=== PATIENT | female | born 1985 | race Caucasian/White ===

== ENCOUNTER 2022-02-09 18:41 | Emergency (ER) | payer OTHER ==
[2022-02-09] MEDS ORDERED: solu-MEDROL ONE (19:15)
[2022-02-09] MEDS ORDERED: Pepcid 20 MG VIAL IV ONE (19:20)
[2022-02-09] MEDS ORDERED: Sterile H2O 10 ml IJ ONE (19:20)
[2022-02-09] MEDS: Pepcid 20 MG VIAL IV ONE (19:25)
[2022-02-09] MEDS: solu-MEDROL 125 MG, Sterile H2O 10 ml 2 ML IV ONE ×2 (19:25)
--- NOTE | 2022-02-09 19:50 | ERPHSYRPT ---
- History of Present Illness Source: patient, EMS Exam Limitations: no limitations Patient Subjective Stated Complaint: swollen throat due to coconut allergy Triage Nursing Assessment: Pt brought to the ER by EMS, vitals wnl, denies pain, pulses normal, skin n/w/d, no hives or redness noted, pt sleeping at this time, doesn't appear to be in any distress at this time Physician History: 36 yo wf w h/o of coconut allergy became dyspneic/trouble swallowing after possibly ingesting coconut at [employer]. Pt took 50mg po Benadryl and was given IM Epi per EMs w improvement. She was alert and oriented x3 w good BP/Sats/airway upon arrival. Pt somewhat sleepy upon arrival but much improved. Timing/Duration: today Severity: moderate Modifying Factors: Improves With: other (Benadryl/Epi) Associated Symptoms: shortness of breath, No nausea, No vomiting, No abdominal pain, No heartburn, No diaphoresis, No cough, No chills, No chest pain, No fever, No headaches, No loss of appetite, No malaise, No rash, No syncope, No seizure, No weakness Allergies/Adverse Reactions: shrimp Allergy (Severe, Verified 02/09/22 18:59) Difficulty Breathing venom-honey bee Allergy (Severe, Verified 02/09/22 18:59) Difficulty Breathing venom-wasp Allergy (Severe, Verified 02/09/22 18:59) Difficulty Breathing menthol [From Icy Hot] Allergy (Intermediate, Verified 02/09/22 18:59) Hives methyl salicylate [From Icy Hot] Allergy (Intermediate, Verified 02/09/22 18:59) Hives nicotine [From Nicoderm CQ] Allergy (Intermediate, Verified 02/09/22 18:59) Rash latex Allergy (Mild, Verified 02/09/22 18:59) Rash coconut Allergy (Verified 02/09/22 18:59) Anaphylactic Reaction Home Medications: Fluoxetine HCl 20 mg [Prozac 20 MG] 60 mg PO DAILY 12/15/18 [History] Topiramate 25 mg PO DAILY 04/14/20 [History] Hx Tetanus, Diphtheria Vaccination/Date Given: Yes Hx Influenza Vaccination/Date Given: Yes Hx Pneumococcal Vaccination/Date Given: No Travel Risk - International Travel Have you traveled outside of the country in past 3 weeks: No - Coronavirus Screening Are you exhibiting any of the following symptoms?: No - Vaccine Status Have you recieved a Covid-19 vaccination: Yes [employer]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: [employer] - Vaccination Dates Date of 2cond Vaccination (if applicable): 9190817 - Review of Systems Constitutional: No Symptoms Eyes: No Symptoms Ears, Nose, & Throat: No Symptoms, Throat Swelling Respiratory: No Symptoms, Dyspnea Cardiac: No Symptoms Abdominal/Gastrointestinal: No Symptoms Genitourinary Symptoms: No Symptoms Musculoskeletal: No Symptoms Skin: No Symptoms Neurological: No Symptoms Psychological: No Symptoms Endocrine: No Symptoms Hematologic/Lymphatic: No Symptoms Immunological/Allergic: No Symptoms - Past Medical History Pertinent Past Medical History: Yes Neurological History: Migraines, Seizures ENT History: No Pertinent History Cardiac History: No Pertinent History Respiratory History: Asthma Endocrine Medical History: No Pertinent History Musculoskeletal History: No Pertinent History GI Medical History: GERD History: No Pertinent History Psycho-Social History: Depression, Anxiety Female Reproductive Disorders: No Pertinent History - Past Surgical History Past Surgical History: Yes Neuro Surgical History: No Pertinent History Cardiac: No Pertinent History Respiratory: No Pertinent History Gastrointestinal: No Pertinent History Genitourinary: No Pertinent History Musculoskeletal: No Pertinent History Female Surgical History: Section, Dilation & Curettage Other Surgical History: tubal ligation - Social History Smoking Status: Current every day smoker How long have you smoked: 16yrs Exposure to second hand smoke: Yes Drug Use: none Patient Lives Alone: No Significant Family History: no pertinent family hx - Female History Hx Now: No - Nursing Vital Signs Nursing Vital Signs: Initial Vital Signs Temperature 97.3 F 02/09/22 18:43 Pulse Rate 85 02/09/22 18:43 Respiratory Rate 16 02/09/22 18:43 Blood Pressure 120/73 02/09/22 18:43 O2 Sat by Pulse Oximetry 99 02/09/22 18:43 Pain Scale Pain Intensity 0 WNL - Physical Exam General Appearance: no apparent distress (Sleepy) Eye Exam: PERRL/EOMI, eyes nml inspection Ears, Nose, Throat Exam: normal ENT inspection, TMs normal, pharynx normal, moist mucous membranes Neck Exam: normal inspection, non-tender, supple, full range of motion, No meningismus, No mass, No Brudzinski, No Kernig's, No carotid bruit Respiratory Exam: crackles/rales (Faint at bases B) Cardiovascular Exam: regular rate/rhythm, normal heart sounds, normal peripheral pulses, capillary refill <2 sec, No murmur Gastrointestinal/Abdomen Exam: soft, normal bowel sounds, No tenderness Back Exam: normal inspection, normal range of motion, No CVA tenderness, No vertebral tenderness Extremity Exam: normal inspection, normal range of motion Neurologic Exam: alert, oriented x 3, 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, 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, normal mood/affect Skin Exam: normal color, warm, dry Lymphatic Exam: No adenopathy SpO2 Interpretation: normal SpO2: 100 O2 Delivery: Room Air - Course Nursing assessment & vital signs reviewed: Yes Ordered Tests: Medication Summary Discontinued Medications Generic Name Dose Route Start Last Admin Trade Name Daniel PRN Reason Stop Dose Admin Methylprednisolone Sodium 0 mg 02/09/22 19:02 02/09/22 19:25 Succinate 125 mg/ Sterile IV 02/09/22 19:03 125 mg Water 2 ml STAT ONE Administration Famotidine 40 mg 02/10/22 19:02 02/09/22 19:25 Famotidine 20 Mg/1 Vial IV 02/10/22 19:03 40 mg STAT ONE Administration Famotidine Confirm 02/09/22 19:20 Famotidine 20 Mg/1 Vial Administered 02/09/22 19:21 Dose 40 mg IV .STK-MED ONE Methylprednisolone Sodium Succinate Confirm 02/09/22 19:15 Methylprednis Sod Succ 125 Mg/2 Ml Vial Administered 02/09/22 19:16 Dose 125 mg .ROUTE .STK-MED ONE Sterile Water Confirm 02/09/22 19:20 Water For Injection,Sterile 10 Ml Vial Administered 02/09/22 19:21 Dose 10 ml IJ .STK-MED ONE - Progress Progress: improved Progress Note: 02/09/22 22:00 40mg IV Pepcid/125mg IV Solumedrol Pt observed in ER/Good sats on room air/Respirations nonlabored/States back to baseline and wants to go home 02/09/22 22:43 Counseled pt/family regarding: diagnosis, need for follow-up - Departure Departure Disposition: Home Clinical Impression: Allergic reaction Condition: Stable Critical Care Time: No Referrals: JAMES FRANCE MD [Primary Care Provider] - Follow up/PCP as directed Instructions: Food Allergy, Anaphylaxis (DC) Additional Instructions: Benadryl 25mg every 6 hours as needed Use EpiPen as needed for anaphylaxis, May repeat x1 Return to ER for severe allergic reaction
[2022-02-09 22:23] VITALS: BP 96/61; PULSE 76
[2022-02-09 22:43] VITALS: O2SAT 100
== END 2022-02-09 22:23 | disposition home or self-care (01) ==
LOC: ED 18:41
DX: T78.1XXA Other adverse food reactions, not elsewhere classified, initial encounter (principal); R06.00 Dyspnea, unspecified; R13.10 Dysphagia, unspecified; Z72.0 Tobacco use; Z79.899 Other long term (current) drug therapy
CPT/HCPCS: 96374; 96375; 99283; J2930

== ENCOUNTER 2022-06-11 16:52 | Emergency (ER) | payer OTHER ==
[2022-06-11 17:19] VITALS: BP 141/84; PULSE 88; O2SAT 99
[2022-06-11 18:15] LABS: INFLUENZA B NEGATIVE (NEGATIVE); RESPIRATORY SYNCTIAL VIRUS NEGATIVE (Negative); SARS-CoV-2 Xpert Express NEGATIVE (NEGATIVE)
[2022-06-11 18:39] LABS: INFLUENZA A POSITIVE (NEGATIVE)
[2022-06-11] MEDS ORDERED: Tamiflu 75MG Capsule PO ONE ×2 (18:39→18:53)
[2022-06-11] MEDS ORDERED: HYDROCODONE-ACETAMIN 2.5-108/5 ML SOLUTION ONE (18:40)
[2022-06-11] MEDS ORDERED: HYDROCODONE-ACETAMIN 2.5-108/5 ML SOLUTION PO STA (18:52)
--- NOTE | 2022-06-11 18:52 | ERPHSYRPT ---
- History of Present Illness Time Seen by Provider: 06/11/22 16:56 Source: patient Exam Limitations: no limitations Patient Subjective Stated Complaint: Pt c/o of a cough for approx 3 days and she coughs so much it makes her vomit, c/o of all over body aches and neck pain Triage Nursing Assessment: Pt brought to the ER by her father, hypertensive, rates generalized pain as 9/10, dry cough, shivering, feels warm to the touch but oral temp is 98.5, runny nose, headache, states that she had a fever at home of 100.6 and took some tylenol Physician History: 36-year-old female presented in the ER with chief complaint of flulike symptoms for last 3 days. Patient reports wet to dry cough, having bouts of coughing followed by gagging and sometimes vomits. Having low-grade fever with a T-max of 100.6 earlier today. Patient feels weak fatigued tired and dehydrated. Having generalized body aches. Denies any abdominal pain. Timing/Duration: day(s) (3), gradual onset, worse Cough Quality/Degree: moderate, dry cough Possible Cause: unknown cause Modifying Factors: Worsens With: activity Associated Symptoms: fever, chills, chest pain/soreness, cough, muscle aches, nasal congestion, nasal drainage, shortness of breath, sinus infection, sore throat Allergies/Adverse Reactions: shrimp Allergy (Severe, Verified 06/11/22 17:19) Difficulty Breathing venom-honey bee Allergy (Severe, Verified 06/11/22 17:19) Difficulty Breathing venom-wasp Allergy (Severe, Verified 06/11/22 17:19) Difficulty Breathing menthol [From Icy Hot] Allergy (Intermediate, Verified 06/11/22 17:19) Hives methyl salicylate [From Icy Hot] Allergy (Intermediate, Verified 06/11/22 17:19) Hives nicotine [From Nicoderm CQ] Allergy (Intermediate, Verified 06/11/22 17:19) Rash latex Allergy (Mild, Verified 06/11/22 17:19) Rash coconut Allergy (Verified 06/11/22 17:19) Anaphylactic Reaction Home Medications: Escitalopram Oxalate [Lexapro] 10 mg PO DAILY 06/11/22 [History] Hx Tetanus, Diphtheria Vaccination/Date Given: Yes Hx Influenza Vaccination/Date Given: Yes Hx Pneumococcal Vaccination/Date Given: No Travel Risk - International Travel Have you traveled outside of the country in past 3 weeks: No - Coronavirus Screening Symptoms: Fever, Cough: New Onset, Vomiting/Diarrhea, Headaches/Body Aches/Fatigue - Vaccine Status Have you recieved a Covid-19 vaccination: Yes 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[employer] - Vaccination Dates Date of 2cond Vaccination (if applicable): 9190817 - Review of Systems Constitutional: Fever, Chills, Fatigue, Weakness Eyes: No Symptoms Ears, Nose, & Throat: Nose Congestion, Sinus Drainage, Throat Pain Respiratory: Cough Cardiac: Chest Pain Abdominal/Gastrointestinal: Vomiting Genitourinary Symptoms: No Symptoms Musculoskeletal: Myalgias Skin: No Symptoms Neurological: No Symptoms Endocrine: No Symptoms Hematologic/Lymphatic: No Symptoms Immunological/Allergic: No Symptoms - Past Medical History Pertinent Past Medical History: Yes Neurological History: Migraines, Seizures ENT History: No Pertinent History Cardiac History: No Pertinent History Respiratory History: Asthma Endocrine Medical History: No Pertinent History Musculoskeletal History: No Pertinent History GI Medical History: GERD History: No Pertinent History Psycho-Social History: Depression, Anxiety Female Reproductive Disorders: No Pertinent History - Past Surgical History Past Surgical History: Yes Neuro Surgical History: No Pertinent History Cardiac: No Pertinent History Respiratory: No Pertinent History Gastrointestinal: No Pertinent History Genitourinary: No Pertinent History Musculoskeletal: No Pertinent History Female Surgical History: Section, Dilation & Curettage Other Surgical History: tubal ligation - Social History Smoking Status: Current every day smoker How long have you smoked: 16yrs Exposure to second hand smoke: Yes Drug Use: none Patient Lives Alone: No Significant Family History: no pertinent family hx - Female History Hx Now: No (tubal) - Nursing Vital Signs Nursing Vital Signs: Initial Vital Signs Temperature 98.5 F 06/11/22 17:03 Pulse Rate 88 06/11/22 17:03 Blood Pressure 141/84 06/11/22 17:03 O2 Sat by Pulse Oximetry 99 06/11/22 17:03 Pain Scale Pain Intensity 9 - Physical Exam General Appearance: no apparent distress, alert Eye Exam: PERRL/EOMI Ears, Nose, Throat Exam: TMs normal, moist mucous membranes, pharyngeal erythema Neck Exam: normal inspection, non-tender, supple, full range of motion Respiratory Exam: normal breath sounds, lungs clear Cardiovascular Exam: regular rate/rhythm, normal heart sounds Gastrointestinal/Abdomen Exam: soft, normal bowel sounds, No tenderness Back Exam: normal inspection, normal range of motion Extremity Exam: normal inspection, normal range of motion Neurologic Exam: alert, oriented x 3, 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, 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 Skin Exam: normal color SpO2 Interpretation: normal SpO2: 99 O2 Delivery: Room Air Ordered Tests: Active Orders 24 hr Category Date Time Status CHEST 1 VIEW (PORTABLE) Stat Exams 06/11/22 17:28 Ordered Medication Summary Discontinued Medications Generic Name Dose Route Start Last Admin Trade Name Daniel PRN Reason Stop Dose Admin Hydrocodone Bitart/Acetaminophen Confirm 06/11/22 18:40 Hydrocodone/Acetaminophen 5 Ml Udcup Administered 06/11/22 18:41 Dose 10 ml .ROUTE .STK-MED ONE Oseltamivir Phosphate Confirm 06/11/22 18:39 Oseltamivir 75 Mg Cap Administered 06/11/22 18:40 Dose 75 mg PO .STK-MED ONE Lab/Rad Data: Laboratory Results 06/11/22 Range/Units 17:37 Influenza Type A Ag POSITIVE (NEGATIVE) Influenza Type B Ag NEGATIVE (NEGATIVE) RSV (PCR) NEGATIVE (Negative) SARS-CoV-2 (PCR) NEGATIVE (NEGATIVE) - Progress Progress: re-examined Air Movement: good Progress Note: 06/11/22 18:50 36-year-old is evaluated for flulike symptoms. She is given Zofran for symptomatic relief. Chest x-ray negative for any acute cardiopulmonary findings reviewed by me, official report is pending. She has positive influenza A, started on Tamiflu. Recommended supportive care and outpatient follow-up. Discussed signs symptoms of worsening needing return to ER which she seems understanding. Blood Culture(s) Obtained: No Antibiotics given: No Counseled pt/family regarding: lab results, diagnosis, need for follow-up, rad results - Departure Departure Disposition: Home Clinical Impression: Influenza A Condition: Stable Critical Care Time: No Referrals: GORDO GOMEZ PA [Primary Care Provider] - Follow Up with PCP/3 days Instructions: Flu, Adult (DC) Additional Instructions: Take Tylenol/ibuprofen as needed for aches and pains/fever chills. Follow-up with primary care for reevaluation. Return to ER for worsening cough or if having difficulty breathing etc. Prescriptions: Oseltamivir 75 mg [Tamiflu 75MG Capsule] 75 mg PO BID #10 cap
--- NOTE | 2022-06-11 21:10 | XRAY ---
Indication: Cough, short of breath, and vomiting. Comparison: None Portable chest demonstrates normal heart, lungs, and bony thorax.
== END 2022-06-11 18:59 | disposition home or self-care (01) ==
LOC: ED 16:52
DX: J10.1 Influenza due to other identified influenza virus with other respiratory manifestations (principal); R05.1 Acute cough; R50.9 Fever, unspecified; R53.1 Weakness; M79.10 Myalgia, unspecified site; Z72.0 Tobacco use; Z79.899 Other long term (current) drug therapy
CPT/HCPCS: 0241U; 71045; 99283; A9270-GY

== ENCOUNTER 2022-08-16 21:09 | Emergency (ER) | payer OTHER ==
--- NOTE | 2022-08-16 21:14 | ERPHSYRPT ---
- History of Present Illness Time Seen by Provider: 08/16/22 21:14 Source: patient Exam Limitations: no limitations Physician History: This is a 36-year-old obese female who presents with 2-day history of ankle swelling. Is localized to the right ankle. Patient denies calf pain. She denies cough. She denies shortness of breath. She has no history of clotting or bleeding disorders. Patient has no idea why she has the swelling. She did not fall and she has not suffered any traumatic injury. Patient states she has never had anything like this before. Method of Injury: other (No injury no fall) Occurred: days ago (2) Severity of Pain-Max: mild Severity of Pain-Current: mild Lower Extremities Pain: ankle: right Modifying Factors: Improves With: movement Associated Symptoms: other (Patient can bear weight without any difficulty. She does feel a tightness around the ankle but it is mild) Allergies/Adverse Reactions: shrimp Allergy (Severe, Verified 08/16/22 21:20) Difficulty Breathing venom-honey bee Allergy (Severe, Verified 08/16/22 21:20) Difficulty Breathing venom-wasp Allergy (Severe, Verified 08/16/22 21:20) Difficulty Breathing menthol [From Icy Hot] Allergy (Intermediate, Verified 08/16/22 21:20) Hives methyl salicylate [From Icy Hot] Allergy (Intermediate, Verified 08/16/22 21:20) Hives nicotine [From Nicoderm CQ] Allergy (Intermediate, Verified 08/16/22 21:20) Rash latex Allergy (Mild, Verified 08/16/22 21:20) Rash coconut Allergy (Verified 08/16/22 21:20) Anaphylactic Reaction Home Medications: Escitalopram Oxalate [Lexapro] 10 mg PO DAILY 06/11/22 [History] Hx Tetanus, Diphtheria Vaccination/Date Given: Yes Hx Influenza Vaccination/Date Given: Yes Hx Pneumococcal Vaccination/Date Given: No Travel Risk - International Travel Have you traveled outside of the country in past 3 weeks: No - Coronavirus Screening Are you exhibiting any of the following symptoms?: No Close contact with a COVID-19 positive Pt in past 14-21 Days: No - Vaccine Status Have you recieved a Covid-19 vaccination: Yes 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[employer] - Vaccination Dates Date of 2cond Vaccination (if applicable): 9190817 - Review of Systems Constitutional: No Symptoms Eyes: No Symptoms Ears, Nose, & Throat: No Symptoms Respiratory: No Symptoms Cardiac: No Symptoms Abdominal/Gastrointestinal: No Symptoms Genitourinary Symptoms: No Symptoms Musculoskeletal: Joint Swelling (Mild right ankle) Skin: No Symptoms Neurological: No Symptoms Psychological: No Symptoms Endocrine: No Symptoms Hematologic/Lymphatic: No Symptoms Immunological/Allergic: No Symptoms All Other Systems: Reviewed and Negative - Past Medical History Pertinent Past Medical History: Yes Neurological History: Migraines, Seizures ENT History: No Pertinent History Cardiac History: No Pertinent History Respiratory History: Asthma Endocrine Medical History: No Pertinent History Musculoskeletal History: No Pertinent History GI Medical History: GERD History: No Pertinent History Psycho-Social History: Depression, Anxiety Female Reproductive Disorders: No Pertinent History - Past Surgical History Past Surgical History: Yes Neuro Surgical History: No Pertinent History Cardiac: No Pertinent History Respiratory: No Pertinent History Gastrointestinal: No Pertinent History Genitourinary: No Pertinent History Musculoskeletal: No Pertinent History Female Surgical History: Section, Dilation & Curettage Other Surgical History: tubal ligation - Social History Smoking Status: Current every day smoker How long have you smoked: 16yrs Exposure to second hand smoke: Yes Drug Use: none Patient Lives Alone: No Significant Family History: no pertinent family hx - Nursing Vital Signs Nursing Vital Signs: Initial Vital Signs Temperature 97.4 F 08/16/22 21:21 Pulse Rate 63 08/16/22 21:21 Respiratory Rate 18 08/16/22 21:21 Blood Pressure 118/58 08/16/22 21:21 O2 Sat by Pulse Oximetry 100 08/16/22 21:21 Pain Scale Pain Intensity 2 - Physical Exam General Appearance: no apparent distress, alert, anxiety, obese Eyes, Ears, Nose, Throat Exam: normal ENT inspection, moist mucous membranes Neck Exam: normal inspection, non-tender, supple, full range of motion Cardiovascular/Respiratory Exam: chest non-tender, no respiratory distress Gastrointestinal/Abdominal Exam: non-tender Back Exam: normal inspection, normal range of motion, No CVA tenderness, No vertebral tenderness Hips Exam: bilateral: non-tender, normal inspection, normal range of motion, no evidence of injury Legs Exam: bilateral leg: non-tender, normal inspection, normal range of motion, no evidence of injury Knees Exam: bilateral knee: non-tender, normal inspection, normal range of motion, no evidence of injury Ankle Exam: right ankle: other (Patient, clinically does not appear to have significant swelling but she states there is mild tenderness around the ankle on the right side), left ankle: non-tender, bilateral ankle: normal inspection, normal range of motion, no evidence of injury Foot Exam: bilateral foot: non-tender, normal inspection, normal range of motion, no evidence of injury Neuro/Tendon Exam: normal sensation, normal motor functions, normal tendon functions Mental Status Exam: alert, oriented x 3, cooperative Skin Exam: normal color, warm, dry SpO2 Interpretation: normal - Course Nursing assessment & vital signs reviewed: Yes Ordered Tests: Active Orders 24 hr Category Date Time Status Yann Bandage Application -[facility] STAT Care 08/16/22 21:55 Ordered ANKLE (3 VIEWS) Stat Exams 08/16/22 21:29 Ordered - Progress Progress: unchanged Progress Note: 08/16/22 21:59 X-ray right ankle shows no acute fracture or dislocation. This x-ray was interpreted by me. Medical decision making: This patient has a low complexity medical issue. I obtained history from the patient. No other history was obtained from individuals or old records. Based on the patient's history and physical exam, I ordered an x-ray of the right ankle. No blood work was necessary. I reviewed the x-ray of the right ankle and are interpreted myself. There is no evidence of any acute fracture or dislocation. Based on the x-ray findings and physical exam findings, I formulated a discharge plan which included ice pack, Yann wrap, elevation of the right lower extremity above the level of the heart and the use of Tylenol and ibuprofen for pain control. Patient declined use of ibuprofen. Patient and family members have had issues with the use of ibuprofen. I also discussed with the patient that part of the discharge instructions would be to follow-up with her primary care physician or orthopedic clinic of choice if she has persistent or worsening symptoms. Counseled pt/family regarding: diagnosis, need for follow-up, rad results - Departure Departure Disposition: Home Clinical Impression: Right ankle pain Condition: Stable Critical Care Time: No Referrals: GORDO GOMEZ PA [Primary Care Provider] - Follow up/PCP as directed Additional Instructions: Ice pack to area 3 times a day for 48 hours. Use Tylenol every 4 hours while awake as discussed for pain control. Use the Yann wrap for pain control. Follow-up with your primary care provider or orthopedic clinic of choice for persistent symptoms.
[2022-08-16 22:09] VITALS: BP 109/75; PULSE 71; O2SAT 99
--- NOTE | 2022-08-17 08:56 | XRAY ---
Indication: Pain and swelling. No known injury. Comparison: None 3 view right ankle demonstrates small plantar heel spur and tiny distal tibial spur anteriorly. No other bony, articular, or soft tissue abnormalities.
== END 2022-08-16 22:17 | disposition home or self-care (01) ==
LOC: ED 21:09
DX: M25.571 Pain in right ankle and joints of right foot (principal); M25.471 Effusion, right ankle; Z79.899 Other long term (current) drug therapy; Z72.0 Tobacco use
CPT/HCPCS: 73610; 99283

== ENCOUNTER 2022-11-03 01:01 | Emergency (ER) | payer OTHER ==
[2022-11-03] MEDS ORDERED: Augmentin 875-125 Tablet PO ONE (02:07)
[2022-11-03 02:08] VITALS: BP 122/85; PULSE 73; O2SAT 100
[2022-11-03] MEDS ORDERED: TYLENOL 325 MG PO ONE (02:09)
--- NOTE | 2022-11-03 02:10 | ERPHSYRPT ---
- History of Present Illness Time Seen by Provider: 11/03/22 02:14 Source: patient Exam Limitations: no limitations Physician History: Patient is a 36-year-old female presents to our ED for evaluation of dental pain. Patient has been experiencing dental pain for the past 2 days. Patient states her right cheek is been progressively swelling worse today. No trauma. No fever. Pain worse with palpation to the teeth 11 and 12. Pain worse with mastication. Pain improved with rest. No trauma. Symptoms are moderate in intensity. No specific worsening improving factors. Patient took Tylenol for pain control yesterday however has not had any pain medication today. Patient voices no other complaints concerns at this time. Portions of this note were created with voice recognition technology. There may be grammatical, spelling, punctuation or sound alike errors Timing/Duration: today Severity: moderate Modifying Factors: Improves With: other (Mastication) Associated Symptoms: denies symptoms Allergies/Adverse Reactions: shrimp Allergy (Severe, Verified 11/03/22 02:05) Difficulty Breathing venom-honey bee Allergy (Severe, Verified 11/03/22 02:05) Difficulty Breathing venom-wasp Allergy (Severe, Verified 11/03/22 02:05) Difficulty Breathing menthol [From Icy Hot] Allergy (Intermediate, Verified 11/03/22 02:05) Hives methyl salicylate [From Icy Hot] Allergy (Intermediate, Verified 11/03/22 02:05) Hives nicotine [From Nicoderm CQ] Allergy (Intermediate, Verified 11/03/22 02:05) Rash latex Allergy (Mild, Verified 11/03/22 02:05) Rash coconut Allergy (Verified 11/03/22 02:05) Anaphylactic Reaction Home Medications: Escitalopram Oxalate [Lexapro] 10 mg PO DAILY 06/11/22 [History] Hx Tetanus, Diphtheria Vaccination/Date Given: Yes Hx Influenza Vaccination/Date Given: Yes Hx Pneumococcal Vaccination/Date Given: No Travel Risk - Vaccine Status Have you recieved a Covid-19 vaccination: Yes 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[employer] - Vaccination Dates Date of 2cond Vaccination (if applicable): 9190817 - Review of Systems Constitutional: No Symptoms, No Fever, No Chills Eyes: No Symptoms Ears, Nose, & Throat: No Symptoms Respiratory: No Symptoms, No Cough, No Dyspnea Cardiac: No Symptoms, No Chest Pain, No Edema, No Syncope Abdominal/Gastrointestinal: No Symptoms, No Abdominal Pain, No Nausea, No Vomiting, No Diarrhea Genitourinary Symptoms: No Symptoms, No Dysuria Musculoskeletal: No Symptoms, No Back Pain, No Neck Pain Skin: No Symptoms, No Rash Neurological: No Symptoms, No Dizziness, No Focal Weakness, No Sensory Changes Psychological: No Symptoms Endocrine: No Symptoms Hematologic/Lymphatic: No Symptoms Immunological/Allergic: No Symptoms All Other Systems: Reviewed and Negative - Past Medical History Pertinent Past Medical History: Yes Neurological History: Migraines, Seizures ENT History: No Pertinent History Cardiac History: No Pertinent History Respiratory History: Asthma Endocrine Medical History: No Pertinent History Musculoskeletal History: No Pertinent History GI Medical History: GERD History: No Pertinent History Psycho-Social History: Depression, Anxiety Female Reproductive Disorders: No Pertinent History - Past Surgical History Past Surgical History: Yes Neuro Surgical History: No Pertinent History Cardiac: No Pertinent History Respiratory: No Pertinent History Gastrointestinal: No Pertinent History Genitourinary: No Pertinent History Musculoskeletal: No Pertinent History Female Surgical History: Section, Dilation & Curettage Other Surgical History: tubal ligation - Social History Smoking Status: Current every day smoker How long have you smoked: 16yrs Exposure to second hand smoke: Yes Drug Use: none Patient Lives Alone: No Significant Family History: no pertinent family hx - Nursing Vital Signs Nursing Vital Signs: Initial Vital Signs Temperature 97.7 F 11/03/22 02:07 Pulse Rate 73 11/03/22 02:07 Respiratory Rate 18 11/03/22 02:07 Blood Pressure 122/85 11/03/22 02:07 O2 Sat by Pulse Oximetry 100 11/03/22 02:07 Pain Scale Pain Intensity 8 - Physical Exam General Appearance: no apparent distress, alert Eye Exam: PERRL/EOMI, eyes nml inspection Ears, Nose, Throat Exam: normal ENT inspection, TMs normal, pharynx normal, moist mucous membranes, other (Dental abscess tooth #12. There is some tenderness to palpation at tooth #11 as well. There is an obvious dental abscess. No other intraoral pathology. Uvula midline. No sublingual masses. No intraoral lesions. Airway patent) Neck Exam: normal inspection, non-tender, supple, full range of motion Respiratory Exam: normal breath sounds, lungs clear, airway intact, No respiratory distress Cardiovascular Exam: regular rate/rhythm, normal heart sounds, normal peripheral pulses Gastrointestinal/Abdomen Exam: soft, normal bowel sounds, No tenderness, No mass Back Exam: normal inspection, normal range of motion, No CVA tenderness, No v ertebral tenderness Extremity Exam: normal inspection, normal range of motion, pelvis stable Neurologic Exam: alert, oriented x 3, cooperative, normal mood/affect, nml cerebellar function, nml station & gait, sensation nml, No motor deficits Skin Exam: normal color, warm, dry, No rash Lymphatic Exam: No adenopathy SpO2 Interpretation: normal SpO2: 100 O2 Delivery: Room Air - Course Nursing assessment & vital signs reviewed: Yes Ordered Tests: Medication Summary Discontinued Medications Generic Name Dose Route Start Last Admin Trade Name Freq PRN Reason Stop Dose Admin Acetaminophen 975 mg 11/03/22 02:09 Acetaminophen 325 Mg Tablet PO 11/03/22 02:10 STAT ONE Amoxicillin/Clavulanate Potassium 875 mg 11/03/22 02:07 Amox Tr/Potassium Clavulanate 875 Mg Tablet PO 11/03/22 02:08 STAT ONE - Progress Progress: improved Progress Note: 36-year-old female presents to our ED for evaluation of dental pain. Evaluation reveals a dental abscess. Antibiotic administered. Patient received oral analgesic. A prescription for an antibiotic forwarded to patient's pharmacy. Patient has a follow-up appointment with a dentist. However patient understands that she needs to be treated with antibiotic for approximately 1 week before she follows up with her dentist. No trauma. No fever. Patient otherwise voices no other complaints or concerns at this time. Physical exam reveals a dental abscess at tooth #12. Physical exam otherwise normal. No specialized testing observed. Diagnosis based on history and physical examination. Presenting problem is acute in nature. Complexity of problem addressed is low, acute uncomplicated. No critical care time. Complexity of data reviewed and analyzed is none. Diagnosis made based on history and physical examination. No specialized testing ordered or required. Risk of complication and or risk of management is moderate. Patient received an oral dose of antibiotics and a prescription for the same was forwarded to patient's pharmacy. Patient also received oral analgesic. No indication for further work-up. Will discharge home. Patient will follow-up with a dentist within 48 hours for reevaluation. Time spent in discharge is approximately 10 minutes. Plan of care established via shared decision making. Patient voices no other complaints concerns at this time. Portions of this note were created with voice recognition technology. There may be grammatical, spelling, punctuation or sound alike errors 11/03/22 02:16 Counseled pt/family regarding: diagnosis, need for follow-up, rad results - Departure Departure Disposition: Home Clinical Impression: Dental abscess, Pain, dental Condition: Stable Critical Care Time: No Additional Instructions: Discharge/Care Plan TOLU FRY was seen on 11/03/22 in the Emergency Room. The patient was counseled regarding Diagnosis,Lab results, Imaging studies, need for follow up and when to return to the Emergency Room. Prescriptions given: Discharge Note I have spoken with the patient and/or caregivers. I have explained the patient's condition, diagnosis and treatment plan based on the information available to me at this time. I have answered the patient's and/or caregiver's questions and addressed any concerns. The patient and/or caregivers have as good understanding of the patient's diagnosis, condition and treatment plan as can be expected at this point. The vital signs have been stable. The patient's condition is stable and appropriate for discharge from the emergency department. The patient will pursue further outpatient evaluation with the primary care physician or other designated or consulting physician as outlined in the discharge instructions. The patient and/or caregivers are agreeable to this plan of care and follow-up instructions have been explained in detail. The patient and/or caregivers have received these instruction. The patient/and or caregivers are aware that any significant change in condition or worsening of symptoms should prompt an immediate return to this or the closest emergency department or call 911. Prescriptions: Amox Tr/Potass Clav. 875 mg [Augmentin 875-125 Tablet] 875 mg PO BID 7 Days #14 tablet
[2022-11-03] MEDS ORDERED: Augmentin 875-125 Tablet ONE (02:20)
[2022-11-03] MEDS ORDERED: TYLENOL 325 MG ONE (02:20)
== END 2022-11-03 02:32 | disposition home or self-care (01) ==
LOC: ED 01:01
DX: K04.7 Periapical abscess without sinus (principal); K08.89 Other specified disorders of teeth and supporting structures; Z79.899 Other long term (current) drug therapy; Z72.0 Tobacco use
CPT/HCPCS: 99282; A9270-GY

== ENCOUNTER 2022-12-03 03:41 | Emergency (ER) | payer OTHER ==
--- NOTE | 2022-12-03 03:43 | ERPHSYRPT ---
- History of Present Illness Time Seen by Provider: 12/03/22 03:43 Source: patient, family Exam Limitations: no limitations Physician History: This is an obese 37-year-old white female patient who applied topical oil/gel to her skin at approximately 215 this morning. After application she started having some burning of her hands and she felt as though her hands were swelling and she was having pain with ambulation.. She is not short of breath she has no chest pain. Patient was convinced she was having an allergic reaction and therefore she took 50 mg of Benadryl orally which has improved her symptoms but has not completely taken them away. She presents to the emergency department hemodynamically stable but concern for allergic reaction. Timing/Duration: today Quality: burning Severity: mild Location: hands, extremities Possible Causes: other (Topical application) Associated Symptoms: denies symptoms Allergies/Adverse Reactions: shrimp Allergy (Severe, Verified 11/03/22 02:05) Difficulty Breathing venom-honey bee Allergy (Severe, Verified 11/03/22 02:05) Difficulty Breathing venom-wasp Allergy (Severe, Verified 11/03/22 02:05) Difficulty Breathing menthol [From Icy Hot] Allergy (Intermediate, Verified 11/03/22 02:05) Hives methyl salicylate [From Icy Hot] Allergy (Intermediate, Verified 11/03/22 02:05) Hives nicotine [From Nicoderm CQ] Allergy (Intermediate, Verified 11/03/22 02:05) Rash latex Allergy (Mild, Verified 11/03/22 02:05) Rash coconut Allergy (Verified 11/03/22 02:05) Anaphylactic Reaction Home Medications: Escitalopram Oxalate [Lexapro] 10 mg PO DAILY 06/11/22 [History] Hx Tetanus, Diphtheria Vaccination/Date Given: Yes Hx Influenza Vaccination/Date Given: Yes Hx Pneumococcal Vaccination/Date Given: No Travel Risk - International Travel Have you traveled outside of the country in past 3 weeks: No - Coronavirus Screening Are you exhibiting any of the following symptoms?: No Close contact with a COVID-19 positive Pt in past 14-21 Days: No - Vaccine Status Have you recieved a Covid-19 vaccination: Yes 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[employer] - Vaccination Dates Date of 2cond Vaccination (if applicable): 9190817 - Review of Systems Constitutional: No Symptoms Eyes: No Symptoms Ears, Nose, & Throat: No Symptoms Respiratory: No Symptoms Cardiac: No Symptoms Abdominal/Gastrointestinal: No Symptoms Genitourinary Symptoms: No Symptoms Musculoskeletal: No Symptoms Skin: Other (Burning sensation bilateral hands and upper extremities.) Neurological: No Symptoms Psychological: No Symptoms Endocrine: No Symptoms Hematologic/Lymphatic: No Symptoms Immunological/Allergic: No Symptoms All Other Systems: Reviewed and Negative - Past Medical History Pertinent Past Medical History: Yes Neurological History: Migraines, Seizures ENT History: No Pertinent History Cardiac History: No Pertinent History Respiratory History: Asthma Endocrine Medical History: No Pertinent History Musculoskeletal History: No Pertinent History GI Medical History: GERD History: No Pertinent History Psycho-Social History: Depression, Anxiety Female Reproductive Disorders: No Pertinent History - Past Surgical History Past Surgical History: Yes Neuro Surgical History: No Pertinent History Cardiac: No Pertinent History Respiratory: No Pertinent History Gastrointestinal: No Pertinent History Genitourinary: No Pertinent History Musculoskeletal: No Pertinent History Female Surgical History: Section, Dilation & Curettage Other Surgical History: tubal ligation - Social History Smoking Status: Current every day smoker How long have you smoked: 16yrs Exposure to second hand smoke: Yes Drug Use: none Patient Lives Alone: No Significant Family History: no pertinent family hx - Nursing Vital Signs Nursing Vital Signs: Initial Vital Signs Temperature 97.4 F 12/03/22 03:55 Pulse Rate 71 12/03/22 03:55 Respiratory Rate 16 12/03/22 03:55 Blood Pressure 111/68 12/03/22 03:55 O2 Sat by Pulse Oximetry 100 12/03/22 03:55 Pain Scale Pain Intensity 0 - Physical Exam General Appearance: no apparent distress, alert, anxiety, obese Eye Exam: PERRL/EOMI, eyes nml inspection Ears, Nose, Throat Exam: normal ENT inspection, moist mucous membranes Neck Exam: normal inspection, non-tender, supple, full range of motion Respiratory Exam: normal breath sounds, lungs clear, airway intact, No chest tenderness, No respiratory distress Cardiovascular Exam: regular rate/rhythm, normal heart sounds, normal peripheral pulses Gastrointestinal/Abdomen Exam: soft, normal bowel sounds, No tenderness Pelvic Exam: not done Rectal Exam: not done, black stool Back Exam: normal inspection, normal range of motion, CVA tenderness, No vertebral tenderness, No muscle spasm Extremity Exam: normal inspection, normal range of motion, pelvis stable Neurologic Exam: alert, oriented x 3, cooperative, 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 The level of complexity and the work-up performed is based on review of the patient's past medical history, review of the patient's medication list, review the patient's drug allergy list, history of present illness and physical finds on examination. No laboratory studies or radiographic studies are necessary in this patient. On my examination of this patient, the patient is in no distress. She has no respira tory compromise. Her vital signs are stable. I do not appreciate a rash or redness that she stated that she had at home. We will treat her as if she had an allergic reaction. She is to avoid the use of this topical gel/oil. She is to continue Benadryl [id number] 3 times a day as well as [id number] Pepcid once a day for the next 4 to 5 days. Will also send a prescription for prednisone 10 mg orally 3 times a day for 4 days to her pharmacy. Counseled pt/family regarding: diagnosis, need for follow-up Medical Desision Making - Independent Historian Additional History obtained from: Family - Diagnostic Testing Diagnostic test were ordered, analyzed, and reviewed by me: No - Risk of complications The pt has a mod risk of morbidity or mortality based on: Need for prescription drug management - Departure Departure Disposition: Home Clinical Impression: Allergic reaction Condition: Stable Critical Care Time: No Referrals: SOPHIA LOYOLA MD [Primary Care Provider] - Follow up/PCP as directed Additional Instructions: Do not use the topical lotion any longer. Continue Benadryl 25 to 50 mg orally 3 times a day for the next 4 to 5 days. Take your steroids as prescribed. Use [id number] Pepcid once a day for the next 5 days. Follow-up with your primary care provider for further evaluation and management.
[2022-12-03 04:10] VITALS: O2SAT 99
[2022-12-03] MEDS ORDERED: DELTASONE 20 MG PO ONE (04:22)
[2022-12-03] MEDS ORDERED: DELTASONE 20 MG ONE (04:27)
[2022-12-03 04:55] VITALS: BP 99/65; PULSE 72
== END 2022-12-03 04:55 | disposition home or self-care (01) ==
LOC: ED 03:41
DX: R20.8 Other disturbances of skin sensation (principal); T50.905A Adverse effect of unspecified drugs, medicaments and biological substances, initial encounter; Z79.899 Other long term (current) drug therapy; Z79.52 Long term (current) use of systemic steroids; Z72.0 Tobacco use
CPT/HCPCS: 99281; A9270-GY

== ENCOUNTER 2022-12-10 16:50 | Emergency (ER) | payer OTHER ==
[2022-12-10 17:13] VITALS: BP 128/95
[2022-12-10] MEDS ORDERED: TORAdol 30 mg Injection IM ONE (17:40)
[2022-12-10] MEDS ORDERED: DELTASONE 20 MG PO ONE (17:41)
--- NOTE | 2022-12-10 17:47 | ERPHSYRPT ---
- History of Present Illness Time Seen by Provider: 12/10/22 17:42 Source: patient, family Exam Limitations: no limitations Patient Subjective Stated Complaint: Pt c/o of right elbow pain, thinks she hurt it picking something up at work using one hand instead of two but is not sure, pt states that it has hurt for a week but has taken nothing for it and refuses to take IBU due to her sister from taking too much of it Triage Nursing Assessment: Pt was brought to the ER by her fiance, vitals wnl, rates pain as 9/10 although she is very talkative and smiling and laughing, right elbow was wrapped in an mary beth bandage upon arrival and when unwrapped no swelling or bruising was noted, pt stated that this morning it was all bruised, pulses normal, cap refill normal, doesn't appear to be in any distress Physician History: Hx confirmed independent by interview with fiance. No hx direct trauma but felt pain immediately in right lateral epicondyle after lifting milk crate. No fall. N/V and tendon fxn intact. Tender right lateral epicondyle reproduces pain exactly. No other symptoms or injuries. Discussed risks/benefits of x-ray, CBC and ESR , as well as toradol and pred/dospak and pt and fiance wish to proceed. Results reviewed with them as well and need for f/u with ortho. Occurred: days ago Method of Injury: other (lifting) Quality: constant, sharpness, throbbing Severity of Pain-Max: moderate Severity of Pain-Current: moderate Extremities Pain Location: elbow: right Modifying Factors: Improves With: cold therapy, immobilization, movement Associated Symptoms: none Allergies/Adverse Reactions: shrimp Allergy (Severe, Verified 12/10/22 17:13) Difficulty Breathing venom-honey bee Allergy (Severe, Verified 12/10/22 17:13) Difficulty Breathing venom-wasp Allergy (Severe, Verified 12/10/22 17:13) Difficulty Breathing menthol [From Icy Hot] Allergy (Intermediate, Verified 12/10/22 17:13) Hives methyl salicylate [From Icy Hot] Allergy (Intermediate, Verified 12/10/22 17:13) Hives nicotine [From Nicoderm CQ] Allergy (Intermediate, Verified 12/10/22 17:13) Rash latex Allergy (Mild, Verified 12/10/22 17:13) Rash coconut Allergy (Verified 12/10/22 17:13) Anaphylactic Reaction Home Medications: Escitalopram Oxalate [Lexapro] 10 mg PO DAILY 06/11/22 [History] Hx Tetanus, Diphtheria Vaccination/Date Given: Yes Hx Influenza Vaccination/Date Given: Yes Hx Pneumococcal Vaccination/Date Given: No Travel Risk - International Travel Have you traveled outside of the country in past 3 weeks: No - Coronavirus Screening Are you exhibiting any of the following symptoms?: No Close contact with a COVID-19 positive Pt in past 14-21 Days: No - Vaccine Status Have you recieved a Covid-19 vaccination: Yes 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: [employer] - Vaccination Dates Date of 2cond Vaccination (if applicable): [id number] - Review of Systems Constitutional: No Fever, No Chills Eyes: No Symptoms Ears, Nose, & Throat: No Symptoms Respiratory: No Cough, No Dyspnea Cardiac: No Chest Pain, No Edema, No Syncope Abdominal/Gastrointestinal: No Abdominal Pain, No Nausea, No Vomiting, No Diarr hea Genitourinary Symptoms: No Dysuria Musculoskeletal: Injury, Joint Pain, No Back Pain, No Neck Pain Skin: No Symptoms, No Rash Neurological: No Dizziness, No Focal Weakness, No Sensory Changes Psychological: No Symptoms Endocrine: No Symptoms Hematologic/Lymphatic: No Symptoms Immunological/Allergic: No Symptoms All Other Systems: Reviewed and Negative - Past Medical History Pertinent Past Medical History: Yes Neurological History: Migraines, Seizures ENT History: No Pertinent History Cardiac History: No Pertinent History Respiratory History: Asthma Endocrine Medical History: No Pertinent History Musculoskeletal History: No Pertinent History GI Medical History: GERD History: No Pertinent History Psycho-Social History: Depression, Anxiety Female Reproductive Disorders: No Pertinent History - Past Surgical History Past Surgical History: Yes Neuro Surgical History: No Pertinent History Cardiac: No Pertinent History Respiratory: No Pertinent History Gastrointestinal: No Pertinent History Genitourinary: No Pertinent History Musculoskeletal: No Pertinent History Female Surgical History: Section, Dilation & Curettage Other Surgical History: tubal ligation - Social History Smoking Status: Current every day smoker How long have you smoked: 16yrs Exposure to second hand smoke: Yes Drug Use: none Patient Lives Alone: No Significant Family History: no pertinent family hx - Female History Hx Last Menstrual Period: 11/19/2022 Hx Now: No - Nursing Vital Signs Nursing Vital Signs: Initial Vital Signs Temperature 97.7 F 12/10/22 17:02 Pulse Rate 79 12/10/22 17:02 Blood Pressure 128/95 12/10/22 17:02 O2 Sat by Pulse Oximetry 99 12/10/22 17:02 Pain Scale Pain Intensity 9 - Physical Exam General Appearance: no apparent distress, alert Eyes, Ears, Nose, Throat Exam: moist mucous membranes Neck Exam: normal inspection, non-tender, supple, full range of motion Cardiovascular/Respiratory Exam: chest non-tender, normal breath sounds, regular rate/rhythm, heart sounds normal, no respiratory distress Abdominal Exam: non-tender, No guarding Back Exam: normal inspection, normal range of motion, No vertebral tenderness Shoulder Exam: normal inspection, non-tender, no evidence of injury, normal ROM Elbow/Forearm Exam: bone tenderness, pain, soft tissue tenderness Wrist Exam: normal inspection, non-tender, no evidence of injury, normal ROM Hand Exam: normal inspection, non-tender, no evidence of injury, normal ROM DTR - Upper Extremity Exam: bicep (R): 2+, bicep (L): 2+, tricep (R): 2+, tricep (L): 2+ Neuro/Tendon Exam: normal sensation, normal motor functions, normal tendon functions Mental Status Exam: alert, oriented x 3, cooperative Skin Exam: normal color, warm, dry SpO2 Interpretation: normal SpO2: 99 O2 Delivery: Room Air - Course Nursing assessment & vital signs reviewed: Yes - Radiology Exams Right Elbow X-ray Interpretation: Reviewed by me, No Fracture, Other (DJD no epicondylar chip seen) Ordered Tests: Active Orders 24 hr Category Date Time Status ELBOW (MINIMUM 3 VIEWS) Stat Exams 12/10/22 17:40 Taken CBC W DIFF Stat Lab 12/10/22 18:02 Completed SED RATE [Erythrocyte Sedimentation Rate] Stat Lab 12/10/22 18:02 Completed Medication Summary Discontinued Medications Generic Name Dose Route Start Last Admin Trade Name Kiranq PRN Reason Stop Dose Admin Ketorolac Tromethamine 60 mg 12/10/22 17:40 Ketorolac Tromethamine 30 Mg/Ml Inj IM 12/10/22 17:41 STAT ONE Prednisone 60 mg 12/10/22 17:41 Prednisone 20 Mg Tablet PO 12/10/22 17:42 STAT ONE Lab/Rad Data: Laboratory Result Diagrams 12/10/22 18:02 Laboratory Results 12/10/22 12/10/22 Range/Units 18:02 18:02 WBC 8.3 (4.0-10.5) x10^3/uL RBC 4.34 (4.1-5.4) x10^6/uL Hgb 13.0 (12.0-16.0) g/dL Hct 39.9 (35-47) % MCV 91.9 (78-100) fL MCH 30.0 (26-32) pg MCHC 32.6 (32-36) g/dL RDW 13.6 (11.5-14.0) % Plt Count 228 (150-450) x10^3/uL MPV 10.2 (7.5-11.0) fL Gran % 49.1 (36.0-66.0) % Immature Gran % (Auto) 0.4 (0.00-0.4) % Nucleat RBC Rel Count 0.0 (0.00-0.1) % Eos # (Auto) 0.08 (0-0.5) x10^3/uL Immature Gran # (Auto) 0.03 (0.00-0.03) x10^3u/L Absolute Lymphs (auto) 3.48 (1.0-4.6) x10^3/uL Absolute Monos (auto) 0.61 (0.0-1.3) x10^3/uL Absolute Nucleated RBC 0.00 (0.00-0.01) x10^3u/L Lymphocytes % 41.7 (24.0-44.0) % Monocytes % 7.3 (0.0-12.0) % Eosinophils % 1.0 (0.00-5.0) % Basophils % 0.5 (0.0-0.4) % Absolute Granulocytes 4.10 (1.4-6.9) x10^3/uL Basophils # 0.04 (0-0.4) x10^3/uL ESR 23 H (0-20) mm/hr - Progress Progress: improved, re-examined Counseled pt/family regarding: lab results, diagnosis, need for follow-up, rad results Medical Desision Making - Independent Historian Additional History obtained from: Relative/friend - Diagnostic Testing Diagnostic test were ordered, analyzed, and reviewed by me: Yes Radiological Interpretation: Reviewed by me - Departure Departure Disposition: Home Clinical Impression: Epicondylitis, lateral, elbow inflammation unknown cause Condition: Good Critical Care Time: No Referrals: SOPHIA LOYOLA MD [Primary Care Provider] - Follow up/PCP as directed Instructions: Elbow Sprain (DC), Lateral Epicondylitis (DC), Overuse Injuries (DC), Bursitis (DC), Lateral Epicondylitis Exercises Additional Instructions: followup with your Dr. or Orthopedic for further workup as although this appears like epicondylitis of the elbow there could be another condition evolving undetected. Return meantime if not improving or any concerns. Prescriptions: Methylprednisolone Packet [Medrol Dosepack] 4 mg PO UD #30 packet
[2022-12-10 18:04] LABS: BASOPHIL % 0.5 % (0.0-0.4); Basophil (Absolute #) 0.04 x10^3/uL (0-0.4); Eosinophil (Absolute #) 0.08 x10^3/uL (0-0.5); Hematocrit 39.9 % (35-47); IMMATURE GRAN # 0.03 x10^3u/L (0.00-0.03); IMMATURE GRAN % 0.4 % (0.00-0.4); Lymphocyte (Absolute #) 3.48 x10^3/uL (1.0-4.6); Lymphocytes % 41.7 % (24.0-44.0); Mean Cell Volume 91.9 fL (78-100); Mean Corpuscular Hgb Concent. 32.6 g/dL (32-36); Mean Platelet Volume 10.2 fL (7.5-11.0); Monocyte (Absolute #) 0.61 x10^3/uL (0.0-1.3); Monocytes % 7.3 % (0.0-12.0); Neutrophil % 49.1 % (36.0-66.0); Platelet Count 228 x10^3/uL (150-450); Red Blood Count 4.34 x10^6/uL (4.1-5.4); Red Cell Distribution Width 13.6 % (11.5-14.0); White Blood Count 8.3 x10^3/uL (4.0-10.5)
[2022-12-10] MEDS ORDERED: DELTASONE 20 MG ONE (18:35)
[2022-12-10] MEDS ORDERED: TORAdol 30 mg Injection ONE (18:35)
[2022-12-10 18:58] VITALS: PULSE 78; O2SAT 98
--- NOTE | 2022-12-10 21:10 | XRAY ---
Indication: Pain following lifting injury. Comparison: None 3 view right elbow obtained. No bony, articular, or soft tissue abnormalities.
== END 2022-12-10 18:58 | disposition home or self-care (01) ==
LOC: ED 16:50
DX: M77.11 Lateral epicondylitis, right elbow (principal); M25.521 Pain in right elbow; Z79.52 Long term (current) use of systemic steroids; Z79.899 Other long term (current) drug therapy; Z72.0 Tobacco use
CPT/HCPCS: 36415; 73080; 85025; 85652; 96372; 99283; J1885; A9270-GY

== ENCOUNTER 2023-02-06 01:58 | Emergency (ER) | payer OTHER ==
[2023-02-06 02:17] VITALS: TEMP 97.8; O2SAT 100
[2023-02-06] MEDS ORDERED: Sodium Chloride 0.9% 1000 ML 1,000 ML IV STA (02:24)
[2023-02-06] MEDS ORDERED: Sodium Chloride 0.9% 1000 ML 1,000 ML ONE (02:28)
[2023-02-06] MEDS ORDERED: SUBLIMAZE 100 MCG/2 ML IV ONE (02:29)
[2023-02-06] MEDS ORDERED: Zofran 4 MG/2 ML VIAL IV ONE (02:31)
[2023-02-06] MEDS ORDERED: SUBLIMAZE 100 MCG/2 ML ONE (02:32)
--- NOTE | 2023-02-06 02:32 | ERPHSYRPT ---
- History of Present Illness Time Seen by Provider: 02/06/23 02:30 Historian: patient, family Exam Limitations: no limitations Patient Subjective Stated Complaint: pt states she has been having pain in her lt upper abd that started around 1900. states she vomited 2 times monday morning. rates pain 9/10 and descibes as stabbing Triage Nursing Assessment: pt alert and oriented, answers questions approp. pt back per wheelchair and transfers with assist of 1. respirations nonlabored. skin pink warm and dry. abd soft with bowel sounds in all 4 quads. Physician History: pt states she has been having pain in her lt upper abd that started around 1900. states she vomited 2 times monday morning. rates pain 9/10 and descibes as stabbing Timing/Duration: yesterday Activities at Onset: none Quality: stabbing Abdominal Pain Onset Location: LUQ Pain Radiation: no radiation Severity of Pain-Max: moderate Severity of Pain-Current: moderate Associated Symptoms: loss of appetite, nausea, vomiting, No fever/chills Previous symptoms: no prior history Allergies/Adverse Reactions: shrimp Allergy (Severe, Verified 02/06/23 02:20) Difficulty Breathing venom-honey bee Allergy (Severe, Verified 02/06/23 02:20) Difficulty Breathing venom-wasp Allergy (Severe, Verified 02/06/23 02:20) Difficulty Breathing menthol [From Icy Hot] Allergy (Intermediate, Verified 02/06/23 02:20) Hives methyl salicylate [From Icy Hot] Allergy (Intermediate, Verified 02/06/23 02:20) Hives nicotine [From Nicoderm CQ] Allergy (Intermediate, Verified 02/06/23 02:20) Rash latex Allergy (Mild, Verified 02/06/23 02:20) Rash coconut Allergy (Verified 02/06/23 02:20) Anaphylactic Reaction Home Medications: Escitalopram Oxalate [Lexapro] 10 mg PO DAILY 06/11/22 [History] Hx Tetanus, Diphtheria Vaccination/Date Given: Yes Hx Influenza Vaccination/Date Given: Yes Hx Pneumococcal Vaccination/Date Given: No Travel Risk - International Travel Have you traveled outside of the country in past 3 weeks: No - Coronavirus Screening Are you exhibiting any of the following symptoms?: No Close contact with a COVID-19 positive Pt in past 14-21 Days: No - Vaccine Status Have you recieved a Covid-19 vaccination: Yes Manager Fund: Pfizer - Vaccination Dates Date of 2cond Vaccination (if applicable): [id number] - Review of Systems Constitutional: No Fever, No Chills Eyes: No Symptoms Ears, Nose, & Throat: No Symptoms Respiratory: No Cough, No Dyspnea Cardiac: No Chest Pain, No Edema, No Syncope Abdominal/Gastrointestinal: Abdominal Pain, Nausea, Vomiting, No Diarrhea Genitourinary Symptoms: No Dysuria Musculoskeletal: No Back Pain, No Neck Pain Skin: No Rash Neurological: No Dizziness, No Focal Weakness, No Sensory Changes Psychological: No Symptoms Endocrine: No Symptoms All Other Systems: Reviewed and Negative - Past Medical History Pertinent Past Medical History: Yes Neurological History: Migraines, Seizures ENT History: No Pertinent History Cardiac History: No Pertinent History Respiratory History: Asthma Endocrine Medical History: No Pertinent History Musculoskeletal History: No Pertinent History GI Medical History: GERD History: No Pertinent History Psycho-Social History: Depression, Anxiety Female Reproductive Disorders: No Pertinent History - Past Surgical History Past Surgical History: Yes Neuro Surgical History: No Pertinent History Cardiac: No Pertinent History Respiratory: No Pertinent History Gastrointestinal: No Pertinent History Genitourinary: No Pertinent History Musculoskeletal: No Pertinent History Female Surgical History: Section, Dilation & Curettage Other Surgical History: tubal ligation - Social History Smoking Status: Current every day smoker How long have you smoked: 16yrs Exposure to second hand smoke: Yes Drug Use: none Patient Lives Alone: No Significant Family History: no pertinent family hx - Female History Hx Last Menstrual Period: 01/12/2023 Hx Now: No - Nursing Vital Signs Nursing Vital Signs: Initial Vital Signs Temperature 97.8 F 02/06/23 02:04 Pulse Rate 74 02/06/23 02:04 Respiratory Rate 16 02/06/23 02:04 Blood Pressure 104/70 02/06/23 02:04 O2 Sat by Pulse Oximetry 100 02/06/23 02:04 Pain Scale Pain Intensity 4 - Physical Exam General Appearance: no apparent distress, alert Eye Exam: PERRL/EOMI, eyes nml inspection Ears, Nose, Throat Exam: normal ENT inspection, pharynx normal, moist mucous membranes Neck Exam: normal inspection, non-tender, supple, full range of motion Respiratory Exam: normal breath sounds, lungs clear, No respiratory distress Cardiovascular Exam: regular rate/rhythm, normal heart sounds Gastrointestinal/Abdomen Exam: soft, tenderness (LUQ), No mass Back Exam: normal inspection, normal range of motion, No CVA tenderness, No vertebral tenderness Extremity Exam: normal inspection, normal range of motion, pelvis stable Neurologic Exam: alert, oriented x 3, cooperative, normal mood/affect, nml cerebellar function, sensation nml, No motor deficits Skin Exam: normal color, warm, dry SpO2: 100 - Course Nursing assessment & vital signs reviewed: Yes - CT Exams Abdomen/Pelvis CT Interpretation: Tele-radiologist Report Ordered Tests: Active Orders 24 hr Category Date Time Status IV Insertion STAT Care 02/06/23 02:26 Active ABDOMEN AND PELVIS W/0 CONTRAS [CT] Stat Exams 02/06/23 02:24 Completed AMYLASE Stat Lab 02/06/23 02:38 Completed CBC W DIFF Stat Lab 02/06/23 02:38 Completed CMP Stat Lab 02/06/23 02:38 Completed CULTURE,URINE Stat Lab 02/06/23 02:30 Received LIPASE Stat Lab 02/06/23 02:38 Completed UA W/RFX UR CULTURE Stat Lab 02/06/23 02:30 Completed Urine Triage Profile Stat Lab 02/06/23 02:30 Completed Medication Summary Discontinued Medications Generic Name Dose Route Start Last Admin Trade Name Freq PRN Reason Stop Dose Admin Fentanyl Citrate 50 mcg 02/06/23 02:29 02/06/23 02:35 Fentanyl Citrate 100 Mcg/2 Ml* Vial IV 02/06/23 02:30 50 mcg STAT ONE Administration Fentanyl Citrate Confirm 02/06/23 02:32 Fentanyl Citrate 100 Mcg/2 Ml* Vial Administered 02/06/23 02:33 Dose 100 mcg .ROUTE .STK-MED ONE Sodium Chloride 1,000 mls @ 999 mls/hr 02/06/23 02:24 02/06/23 03:54 Sodium Chloride 0.9% 1000 Ml IV 02/06/23 03:24 Infused .Q1H1M STA Infusion Sodium Chloride Confirm 02/06/23 02:28 Sodium Chloride 0.9% 1000 Ml Administered 02/06/23 02:29 Dose 1,000 mls @ ud .ROUTE .STK-MED ONE Ceftriaxone Sodium/Dextrose 1 g in 50 mls @ 100 mls/hr 02/06/23 03:03 02/06/23 03:51 Rocephin 1 Gm-D5w 50 Ml Bag IV 02/06/23 03:32 100 ml/hr STAT STA 100 mls/hr Administration Ceftriaxone Sodium/Dextrose Confirm 02/06/23 03:50 Rocephin 1 Gm-D5w 50 Ml Bag Administered 02/06/23 03:51 Dose 1 g in 50 mls @ ud IV .STK-MED ONE Ondansetron HCl 4 mg 02/06/23 02:31 02/06/23 02:34 Ondansetron Hcl 4 Mg/2 Ml Vial IV 02/06/23 02:32 4 mg STAT ONE Administration Ondansetron HCl Confirm 02/06/23 02:34 Ondansetron Hcl 4 Mg/2 Ml Vial Administered 02/06/23 02:35 Dose 4 mg .ROUTE .STK-MED ONE Potassium Chloride 20 meq 02/06/23 03:15 02/06/23 03:51 Potassium Chloride Tab 10 Meq Tab PO 02/06/23 03:16 20 meq STAT ONE Administration Potassium Chloride Confirm 02/06/23 03:50 Potassium Chloride Tab 10 Meq Tab Administered 02/06/23 03:51 Dose 20 meq PO .STK-MED ONE Lab/Rad Data: Laboratory Result Diagrams 02/06/23 02:38 02/06/23 02:38 Laboratory Results 02/06/23 02/06/23 02/06/23 Range/Units 02:38 02:38 02:30 WBC 9.2 (4.0-10.5) x10^3/uL RBC 4.17 (4.1-5.4) x10^6/uL Hgb 12.7 (12.0-16.0) g/dL Hct 38.5 (35-47) % MCV 92.3 (78-100) fL MCH 30.5 (26-32) pg MCHC 33.0 (32-36) g/dL RDW 13.2 (11.5-14.0) % Plt Count 244 (150-450) x10^3/uL MPV 11.0 (7.5-11.0) fL Gran % 56.0 (36.0-66.0) % Immature Gran % (Auto) 0.4 (0.00-0.4) % Nucleat RBC Rel Count 0.0 (0.00-0.1) % Eos # (Auto) 0.15 (0-0.5) x10^3/uL Immature Gran # (Auto) 0.04 H (0.00-0.03) x10^3u/L Absolute Lymphs (auto) 3.33 (1.0-4.6) x10^3/uL Absolute Monos (auto) 0.51 (0.0-1.3) x10^3/uL Absolute Nucleated RBC 0.00 (0.00-0.01) x10^3u/L Lymphocytes % 36.0 (24.0-44.0) % Monocytes % 5.5 (0.0-12.0) % Eosinophils % 1.6 (0.00-5.0) % Basophils % 0.5 (0.0-0.4) % Absolute Granulocytes 5.16 (1.4-6.9) x10^3/uL Basophils # 0.05 (0-0.4) x10^3/uL Sodium 140 (137-145) mmol/L Potassium 3.4 L (3.5-5.1) mmol/L Chloride 105 (98-107) mmol/L Carbon Dioxide 22 (22-30) mmol/L Anion Gap 15.2 H (5-15) MEQ/L BUN 12 (7-17) mg/dL Creatinine 0.86 (0.52-1.04) mg/dL Estimated GFR > 60.0 ML/MIN Glucose 111 H (74-106) mg/dL Calcium 9.2 (8.4-10.2) mg/dL Total Bilirubin 0.30 (0.2-1.3) mg/dL AST 23 (14-36) U/L ALT 21 (0-35) U/L Alkaline Phosphatase 52 (38-126) U/L Serum Total Protein 7.5 (6.3-8.2) g/dL Albumin 4.2 (3.5-5.0) g/dL Amylase 61 (30-110) U/L Lipase 90 (23-300) U/L Urine Color (Yellow) Urine Appearance (Clear) Urine pH (4.6-8.0) Ur Specific Cameron (1.005-1.030) Urine Protein (Negative) Urine Glucose (UA) (Negative) mg/dL Urine Ketones (Negative) Urine Blood (Negative) Urine Nitrite (Negative) Urine Bilirubin (Negative) Urine Urobilinogen (0.2) mg/dL Ur Leukocyte Esterase (Negative) U Hyaline Cast (Auto) (0-2) /LPF Urine Microscopic RBC (0-5) /HPF Urine Microscopic WBC (0-5) /HPF Ur Epithelial Cells (None Seen) /HPF Urine Bacteria (None Seen) /HPF Urine Culture Reflexed (NO) Urine Opiates Level NEGATIVE (NEGATIVE) Ur Methadone NEGATIVE (NEGATIVE) Urine Barbiturates NEGATIVE (NEGATIVE) Ur Phencyclidine (PCP) NEGATIVE (NEGATIVE) Urine Amphetamine NEGATIVE (NEGATIVE) U Benzodiazepine Level NEGATIVE (NEGATIVE) Urine Cocaine NEGATIVE (NEGATIVE) Urine Marijuana (THC) NEGATIVE (NEGATIVE) 02/06/23 Range/Units 02:30 WBC (4.0-10.5) x10^3/uL RBC (4.1-5.4) x10^6/uL Hgb (12.0-16.0) g/dL Hct (35-47) % MCV (78-100) fL MCH (26-32) pg MCHC (32-36) g/dL RDW (11.5-14.0) % Plt Count (150-450) x10^3/uL MPV (7.5-11.0) fL Gran % (36.0-66.0) % Immature Gran % (Auto) (0.00-0.4) % Nucleat RBC Rel Count (0.00-0.1) % Eos # (Auto) (0-0.5) x10^3/uL Immature Gran # (Auto) (0.00-0.03) x10^3u/L Absolute Lymphs (auto) (1.0-4.6) x10^3/uL Absolute Monos (auto) (0.0-1.3) x10^3/uL Absolute Nucleated RBC (0.00-0.01) x10^3u/L Lymphocytes % (24.0-44.0) % Monocytes % (0.0-12.0) % Eosinophils % (0.00-5.0) % Basophils % (0.0-0.4) % Absolute Granulocytes (1.4-6.9) x10^3/uL Basophils # (0-0.4) x10^3/uL Sodium (137-145) mmol/L Potassium (3.5-5.1) mmol/L Chloride (98-107) mmol/L Carbon Dioxide (22-30) mmol/L Anion Gap (5-15) MEQ/L BUN (7-17) mg/dL Creatinine (0.52-1.04) mg/dL Estimated GFR ML/MIN Glucose (74-106) mg/dL Calcium (8.4-10.2) mg/dL Total Bilirubin (0.2-1.3) mg/dL AST (14-36) U/L ALT (0-35) U/L Alkaline Phosphatase (38-126) U/L Serum Total Protein (6.3-8.2) g/dL Albumin (3.5-5.0) g/dL Amylase (30-110) U/L Lipase (23-300) U/L Urine Color Yellow (Yellow) Urine Appearance Clear (Clear) Urine pH 5.5 (4.6-8.0) Ur Specific Cameron 1.025 (1.005-1.030) Urine Protein Negative (Negative) Urine Glucose (UA) Negative (Negative) mg/dL Urine Ketones Negative (Negative) Urine Blood Negative (Negative) Urine Nitrite Negative (Negative) Urine Bilirubin Negative (Negative) Urine Urobilinogen 1.0 A (0.2) mg/dL Ur Leukocyte Esterase Negative (Negative) U Hyaline Cast (Auto) 3-5 A (0-2) /LPF Urine Microscopic RBC 0-2 (0-5) /HPF Urine Microscopic WBC 11-20 A (0-5) /HPF Ur Epithelial Cells Moderate A (None Seen) /HPF Urine Bacteria Few A (None Seen) /HPF Urine Culture Reflexed YES (NO) Urine Opiates Level (NEGATIVE) Ur Methadone (NEGATIVE) Urine Barbiturates (NEGATIVE) Ur Phencyclidine (PCP) (NEGATIVE) Urine Amphetamine (NEGATIVE) U Benzodiazepine Level (NEGATIVE) Urine Cocaine (NEGATIVE) Urine Marijuana (THC) (NEGATIVE) CT/ABDOMEN AND PELVIS W/0 CONTRAS CLINICAL HISTORY:left upper quadrant pain COMPARISON:None. TECHNIQUE:CT of the abdomen and pelvis was performed in axial plane without intravenous contrast administration. Coronal and sagittal reconstructions were also obtained. FINDINGS: The liver is mildly enlarged in size measuring 18 cm, appears normal in morphology, and appears unremarkable with no intrahepatic or extrahepatic bile duct dilation. Surgical kathi are seen in the right upper quadrant consistent with cholecystectomy procedure in the past. Unremarkable appearing pancreas. No pancreatic mass or ductal dilatation is seen. Unremarkable appearing spleen. The adrenal glands are normal. The kidneys appear unremarkable with no cysts masses or hydronephrosis. Bilateral ureters and urinary bladder appear unremarkable. 5 mm tiny smaller para umbilical hernial defect is noted containing omental fat. No strangulation is noted. Stomach appears unremarkable. Small Bowel and colon are non-distended with no abnormality. Visualized thoracolumbar spine and pelvic skeleton appear normal. Unremarkable abdominal aorta without specific evidence of aneurysm or dissection. Uterus and both ovaries appear unremarkable. Pelvic vasculature appeared unremarkable. IMPRESSION: 1. Grossly unremarkable CT abdomen non-contrast. No acute pathology is noted. 2. Mild hepatomegaly. 3. Smaller tiny hernial defect of 5 mm containing omental fat on paraumbilical location. No strangulation is noted. - Progress Progress: improved Counseled pt/family regarding: lab results, diagnosis, need for follow-up, rad results Medical Desision Making - Diagnostic Testing Diagnostic test were ordered, analyzed, and reviewed by me: Yes Radiological Interpretation: Teleradiologist Report - Risk of complications Low Risk: Low risk of morbidity from additional dx testing or treatment The pt has a mod risk of morbidity or mortality based on: Need for prescription drug management - Departure Departure Disposition: Home Clinical Impression: UTI (urinary tract infection) Qualifiers: Urinary tract infection type: site unspecified Hematuria presence: without hematuria Qualified Code(s): N39.0 - Urinary tract infection, site not specified Abdominal pain Qualifiers: Abdominal location: left upper quadrant Qualified Code(s): R10.12 - Left upper quadrant pain Condition: Stable Critical Care Time: No Referrals: SOPIHA LOYOLA MD [Primary Care Provider] - Follow up/PCP as directed Instructions: Urinary Tract Infection, Adult (DC), Severe Abdominal Pain, Adult (DC) Additional Instructions: Discharge/Care Plan TOLU FRY was seen on 02/06/23 in the Emergency Room. The patient was counseled regarding Diagnosis,Lab results, Imaging studies, need for follow up and when to return to the Emergency Room. Prescriptions given: Discharge Note I have spoken with the patient and/or caregivers. I have explained the patient's condition, diagnosis and treatment plan based on the information available to me at this time. I have answered the patient's and/or caregiver's questions and addressed any concerns. The patient and/or caregivers have as good understanding of the patient's diagnosis, condition and treatment plan as can be expected at this point. The vital signs have been stable. The patient's condition is stable and appropriate for discharge from the emergency department. The patient will pursue further outpatient evaluation with the primary care physician or other designated or consulting physician as outlined in the discharge instructions. The patient and/or caregivers are agreeable to this plan of care and follow-up instructions have been explained in detail. The patient and/or caregivers have received these instruction. The patient/and or caregivers are aware that any significant change in condition or worsening of symptoms emmy uld prompt an immediate return to this or the closest emergency department or call 911. TOLU FRY was seen on 02/06/23 n the Emergency Room. At that time you were treated for an emergent condition, during your visit Laboratory, Radiology and/or other procedures may have been ordered. It is very important that you follow-up with your Primary Care Physician SOPHIA LOYOLA V within the next 24-48 hours to review your Emergency Room visit and the final results of testing that was ordered. Some test results such as Urine Cultures, Blood Cultures, and other cultures if ordered will not be finalized for 24-48 hours. If you do not have a Primary Care Provider please call the medical records department at [phone] ext [phone] to obtain a copy of your results or you may sign into our patient portal to obtain these results by visiting us @ [email or web address] and completing the following steps: 1. Click on the Patient Portal link 2. Click the Patient Self Enrollment Link to complete the enrollment form and entering your 3. Once the enrollment form is completed you will receive an email with a temporary ID and password at the email address you provided. 4. Next choose a user name and password. Your user name must be at least 4 characters long and your password must be at least 4 characters long. 5. Choose a security question from the list and provide your answer to the question. If you already have signed into the Health Portal you may access your Health Care Information 06/02 by the following steps: 1. Login to our website @ [email or web address] 2. Enter your original user name and password. FAQS The [facility] Health Portal is an online tool that contains your Lab Results, Radiology Reports, Visit History, Discharge Instructions and Health Summary Lab and Radiology Results will not be available for 72 hours on the portal. The Portal is a secure site, passwords are encryted and URLs are re-written so they cannot be copied and pasted. You and authorized family members are the only ones who can access your Portal. Also there is a timeout feature that protects your information if you leave the Portal page open. If you have technical difficulty please use the Contact Us link on the page this will allow you to submit any questions you have regarding the Portal or you may contact the Medical Record Department at [phone] ext [phone]. Prescriptions: Ciprofloxacin [Cipro 500 MG] 500 mg PO BID #10 tablet
[2023-02-06] MEDS ORDERED: Zofran 4 MG/2 ML VIAL ONE (02:34)
[2023-02-06 02:41] LABS: Absolute Neutrophil Ct (ANC) 5.16 x10^3/uL (1.4-6.9); BASOPHIL % 0.5 % (0.0-0.4); Basophil (Absolute #) 0.05 x10^3/uL (0-0.4); Eosinophil % 1.6 % (0.00-5.0); Eosinophil (Absolute #) 0.15 x10^3/uL (0-0.5); Hematocrit 38.5 % (35-47); Hemoglobin 12.7 g/dL (12.0-16.0); IMMATURE GRAN # 0.04 x10^3u/L (0.00-0.03); IMMATURE GRAN % 0.4 % (0.00-0.4); Lymphocyte (Absolute #) 3.33 x10^3/uL (1.0-4.6); Mean Cell Volume 92.3 fL (78-100); Mean Corpuscular Hemoglobin 30.5 pg (26-32); Monocyte (Absolute #) 0.51 x10^3/uL (0.0-1.3); Monocytes % 5.5 % (0.0-12.0); Platelet Count 244 x10^3/uL (150-450); Red Blood Count 4.17 x10^6/uL (4.1-5.4); Red Cell Distribution Width 13.2 % (11.5-14.0); White Blood Count 9.2 x10^3/uL (4.0-10.5)
[2023-02-06 02:54] LABS: ALBUMIN 4.2 g/dL (3.5-5.0); ALKALINE PHOSPHATASE 52 U/L (38-126); AMYLASE 61 U/L (30-110); ANION GAP 15.2 MEQ/L (5-15); BLOOD UREA NITROGEN 12 mg/dL (7-17); CHLORIDE 105 mmol/L (98-107); Calcium 9.2 mg/dL (8.4-10.2); Carbon Dioxide 22 mmol/L (22-30); Creatinine 1 0.86 mg/dL (0.52-1.04); EST GLOMERULAR FILTRATION RATE > 60.0 ML/MIN; Glucose 111 mg/dL (74-106); LIPASE 90 U/L (23-300); Potassium 3.4 mmol/L (3.5-5.1); SGOT/AST 23 U/L (14-36); SGPT/ALT 21 U/L (0-35); SODIUM 140 mmol/L (137-145); Total Protein 7.5 g/dL (6.3-8.2)
[2023-02-06 02:56] LABS: Appearance Clear (Clear); Bacteria Few /HPF (None Seen); Bilirubin Negative (Negative); Blood Negative (Negative); Epithelial Cells Moderate /HPF (None Seen); Glucose, Urine Negative (Negative); Ketones Negative (Negative); Leukocyte Esterase Negative (Negative); Nitrite Negative (Negative); Ph 5.5 (4.6-8.0); Protein,Urine Dip Negative (Negative); RBC 0-2 /HPF (0-5); Specific Gravity 1.025 (1.005-1.030)
[2023-02-06 02:57] LABS: ADD URINE CULTURE? YES (NO)
[2023-02-06 03:00] LABS: Amphetamine,Urine NEGATIVE (NEGATIVE); Barbiturate,Urine NEGATIVE (NEGATIVE); Benzodiazepine,Urine NEGATIVE (NEGATIVE); Cocaine,Urine NEGATIVE (NEGATIVE); Methadone,Urine NEGATIVE (NEGATIVE); Opiate,Urine NEGATIVE (NEGATIVE); PCP,Urine NEGATIVE (NEGATIVE); THC,Urine NEGATIVE (NEGATIVE)
[2023-02-06] MEDS ORDERED: ROCEPHIN 1 Gm-D5w 50 ml Bag** 1 G/50 ML IVPB IV STA (03:03)
[2023-02-06] MEDS ORDERED: Klor Con PO ONE ×2 (03:15→03:50)
[2023-02-06] MEDS ORDERED: ROCEPHIN 1 Gm-D5w 50 ml Bag** 1 G/50 ML IVPB IV ONE (03:50)
[2023-02-06 04:04] VITALS: BP 103/65; RESP 16
--- NOTE | 2023-02-06 04:09 | XRAY ---
CLINICAL HISTORY:left upper quadrant pain COMPARISON:None. TECHNIQUE:CT of the abdomen and pelvis was performed in axial plane without intravenous contrast administration. Coronal and sagittal reconstructions were also obtained. FINDINGS: The liver is mildly enlarged in size measuring 18 cm, appears normal in morphology, and appears unremarkable with no intrahepatic or extrahepatic bile duct dilation. Surgical kathi are seen in the right upper quadrant consistent with cholecystectomy procedure in the past. Unremarkable appearing pancreas. No pancreatic mass or ductal dilatation is seen. Unremarkable appearing spleen. The adrenal glands are normal. The kidneys appear unremarkable with no cysts masses or hydronephrosis. Bilateral ureters and urinary bladder appear unremarkable. 5 mm tiny smaller para umbilical hernial defect is noted containing omental fat. No strangulation is noted. Stomach appears unremarkable. Small Bowel and colon are non-distended with no abnormality. Visualized thoracolumbar spine and pelvic skeleton appear normal. Unremarkable abdominal aorta without specific evidence of aneurysm or dissection. Uterus and both ovaries appear unremarkable. Pelvic vasculature appeared unremarkable. IMPRESSION: 1. Grossly unremarkable CT abdomen non-contrast. No acute pathology is noted. 2. Mild hepatomegaly. 3. Smaller tiny hernial defect of 5 mm containing omental fat on paraumbilical location. No strangulation is noted. Electronically Signed by: Marry Anderson MD. (02/06/2023 03:07:30 [email or web address])
[2023-02-06 04:27] VITALS: PULSE 66
== END 2023-02-06 04:34 | disposition home or self-care (01) ==
LOC: ED 01:58
DX: N39.0 Urinary tract infection, site not specified (principal); R10.12 Left upper quadrant pain; R11.2 Nausea with vomiting, unspecified; Z79.899 Other long term (current) drug therapy; Z72.0 Tobacco use
CPT/HCPCS: 36000; 36415; 74176; 80053; 80307; 81001; 82150; 83690; 85025; 87086; 96365; 96374; 96375; 99284; J0696; J2405; J3010; A9270-GY

== ENCOUNTER 2023-04-18 23:57 | Emergency (ER) | payer BC ==
--- NOTE | 2023-04-19 00:02 | ERPHSYRPT ---
- History of Present Illness Time Seen by Provider: 04/19/23 00:01 Source: patient Exam Limitations: no limitations Physician History: This is a 37-year-old white female patient who presents with dysuria as well as foul-smelling urine that been present for 3 days. Patient has history of depression as well as gastroesophageal reflux disease. Patient denies chest pain. She denies shortness of breath. She denies abdominal pain. She has no flank pain at this time. Timing/Duration: day(s) (3) Activites at Onset: none Quality: burning (With urination) Severity of Pain-Max: mild Severity of Pain-Current: mild Modifying Factors: Improves With: nothing Associated Symptoms: dysuria Allergies/Adverse Reactions: shrimp Allergy (Severe, Verified 04/19/23 00:02) Difficulty Breathing venom-honey bee Allergy (Severe, Verified 04/19/23 00:02) Difficulty Breathing venom-wasp Allergy (Severe, Verified 04/19/23 00:02) Difficulty Breathing menthol [From Icy Hot] Allergy (Intermediate, Verified 04/19/23 00:02) Hives methyl salicylate [From Icy Hot] Allergy (Intermediate, Verified 04/19/23 00:02) Hives nicotine [From Nicoderm CQ] Allergy (Intermediate, Verified 04/19/23 00:02) Rash latex Allergy (Mild, Verified 04/19/23 00:02) Rash coconut Allergy (Verified 04/19/23 00:02) Anaphylactic Reaction Home Medications: Escitalopram Oxalate [Lexapro] 20 mg PO DAILY 06/11/22 [History] PANTOPRAZOLE 40 mg Tablet [Protonix 40MG Tablet] 40 mg PO QAM 04/19/23 [History] Phentermine HCl 37.5 mg PO DAILY 04/19/23 [History] Hx Tetanus, Diphtheria Vaccination/Date Given: Yes Hx Influenza Vaccination/Date Given: Yes Hx Pneumococcal Vaccination/Date Given: No Travel Risk - International Travel Have you traveled outside of the country in past 3 weeks: No - Coronavirus Screening Are you exhibiting any of the following symptoms?: No Close contact with a COVID-19 positive Pt in past 14-21 Days: No - Vaccine Status Have you recieved a Covid-19 vaccination: Yes [employer]: [employer] - Vaccination Dates Date of 2cond Vaccination (if applicable): 9190817 - Review of Systems Constitutional: No Symptoms Eyes: No Symptoms Ears, Nose, & Throat: No Symptoms Respiratory: No Symptoms Cardiac: No Symptoms Abdominal/Gastrointestinal: No Symptoms Genitourinary Symptoms: Dysuria Musculoskeletal: No Symptoms Skin: No Symptoms Neurological: No Symptoms Psychological: No Symptoms Endocrine: No Symptoms Hematologic/Lymphatic: No Symptoms Immunological/Allergic: No Symptoms All Other Systems: Reviewed and Negative - Past Medical History Pertinent Past Medical History: Yes Neurological History: Migraines, Seizures ENT History: No Pertinent History Cardiac History: No Pertinent History Respiratory History: Asthma Endocrine Medical History: No Pertinent History Musculoskeletal History: No Pertinent History GI Medical History: GERD History: No Pertinent History Psycho-Social History: Depression, Anxiety Female Reproductive Disorders: No Pertinent History - Past Surgical History Past Surgical History: Yes Neuro Surgical History: No Pertinent History Cardiac: No Pertinent History Respiratory: No Pertinent History Gastrointestinal: No Pertinent History Genitourinary: No Pertinent History Musculoskeletal: No Pertinent History Female Surgical History: Section, Dilation & Curettage Other Surgical History: tubal ligation - Social History Smoking Status: Current every day smoker How long have you smoked: 16yrs Exposure to second hand smoke: Yes Drug Use: none Patient Lives Alone: No Significant Family History: no pertinent family hx - Nursing Vital Signs Nursing Vital Signs: Initial Vital Signs Temperature 98.0 F 04/19/23 00:03 Pulse Rate 73 04/19/23 00:03 Respiratory Rate 18 04/19/23 00:03 Blood Pressure 116/76 04/19/23 00:03 O2 Sat by Pulse Oximetry 97 04/19/23 00:03 Pain Scale Pain Intensity 10 - Physical Exam General Appearance: no apparent distress, alert, anxiety Eye Exam: PERRL/EOMI, eyes nml inspection Ears, Nose, Throat Exam: normal ENT inspection, moist mucous membranes Neck Exam: normal inspection, non-tender, supple, full range of motion Respiratory Exam: airway intact, No chest tenderness, No respiratory distress Cardiovascular Exam: regular rate/rhythm, normal heart sounds, normal peripheral pulses Gastrointestinal/Abdomen Exam: soft, normal bowel sounds, No tenderness Pelvic Exam: deferred Rectal Exam: not done Back Exam: normal inspection, normal range of motion, No CVA tenderness, No vertebral tenderness Extremity Exam: normal inspection, normal range of motion, pelvis stable Neurologic Exam: alert, oriented x 3, 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, 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, normal mood/affect, nml cerebellar function, nml station & gait, sensation nml Skin Exam: normal color, warm, dry Lymphatic Exam: No adenopathy SpO2 Interpretation: normal O2 Delivery: Room Air - Course Nursing assessment & vital signs reviewed: Yes Ordered Tests: Active Orders 24 hr Category Date Time Status CULTURE,URINE Stat Lab 04/19/23 00:07 Received UA W/RFX UR CULTURE Stat Lab 04/19/23 00:07 Completed Lab/Rad Data: Laboratory Results 04/19/23 Range/Units 00:07 Urine Color Yellow (Yellow) Urine Appearance Turbid A (Clear) Urine pH 6.5 (4.6-8.0) Ur Specific [place] 1.025 (1.005-1.030) Urine Protein 300 A (Negative) Urine Glucose (UA) Negative (Negative) mg/dL Urine Ketones Negative (Negative) Urine Blood Large A (Negative) Urine Nitrite Negative (Negative) Urine Bilirubin Negative (Negative) Urine Urobilinogen 1.0 A (0.2) mg/dL Ur Leukocyte Esterase Large A (Negative) U Hyaline Cast (Auto) 3-5 A (0-2) /LPF Urine Microscopic RBC >100 A (0-5) /HPF Urine Microscopic WBC >100 A (0-5) /HPF Ur Epithelial Cells Moderate A (None Seen) /HPF Urine Bacteria Moderate A (None Seen) /HPF Urine Culture Reflexed YES (NO) - Progress Progress: improved, re-examined Air Movement: good Progress Note: 04/19/23 00:37 This patient's medical issue is 1 of low complexity. The level of complexity and the work-up performed is based on review of the patient's past medical history, review the patient's medication list, review the patient's drug allergy list, history of present illness and physical findings on examination. The work-up in this patient includes a urinalysis. Blood Culture(s) Obtained: No Antibiotics given: Yes Counseled pt/family regarding: lab results, diagnosis, need for follow-up Medical Desision Making - Independent Historian Additional History obtained from: Family - Diagnostic Testing Diagnostic test were ordered, analyzed, and reviewed by me: Yes - Risk of complications The pt has a mod risk of morbidity or mortality based on: Need for prescription drug management - Departure Departure Disposition: Home Clinical Impression: UTI (urinary tract infection) Condition: Stable Critical Care Time: No Referrals: SOPHIA LOYOLA MD [Primary Care Provider] - Follow up/PCP as directed Additional Instructions: Drink plenty of fluids. Use Tylenol and ibuprofen for pain and fever control. Take your antibiotics as prescribed. Call your primary care provider later today to make arrangements for follow-up appointment in the next 3 to 5 days. Prescriptions: Smz/Tmp Ds Tablet [Bactrim Ds Tablet] 1 udtab PO BID #14 tablet Phenazopyridine HCl 200 mg [Pyridium 200 mg] 200 mg PO TID #6 tablet
[2023-04-19 00:24] VITALS: RESP 18; TEMP 98
[2023-04-19 00:38] LABS: Appearance Turbid (Clear); Bacteria Moderate /HPF (None Seen); Bilirubin Negative (Negative); Blood Large (Negative); Epithelial Cells Moderate /HPF (None Seen); Glucose, Urine Negative (Negative); Ketones Negative (Negative); Leukocyte Esterase Large (Negative); Nitrite Negative (Negative); Ph 6.5 (4.6-8.0); Protein,Urine Dip 300 (Negative); RBC >100 /HPF (0-5); Specific Gravity 1.025 (1.005-1.030); WBC >100 /HPF (0-5)
[2023-04-19 00:39] LABS: ADD URINE CULTURE? YES (NO)
[2023-04-19] MEDS ORDERED: BACTRIM DS TABLET PO ONE ×2 (00:41→00:48)
[2023-04-19] MEDS ORDERED: Rocephin 1000 MG INJ IM ONE (00:41)
[2023-04-19] MEDS ORDERED: PYRIDIUM 200 MG PO ONE (00:42)
[2023-04-19] MEDS ORDERED: Rocephin 1000 MG INJ ONE (00:48)
[2023-04-19] MEDS ORDERED: PYRIDIUM 200 MG ONE (00:48)
[2023-04-19] MEDS ORDERED: XYLOCAINE 1% HCL 20 ML MDV ONE (00:50)
[2023-04-19 01:00] VITALS: BP 114/80; PULSE 58; O2SAT 98
== END 2023-04-19 01:16 | disposition home or self-care (01) ==
LOC: ED 23:57
DX: N39.0 Urinary tract infection, site not specified (principal); R30.0 Dysuria; Z79.899 Other long term (current) drug therapy; Z72.0 Tobacco use
CPT/HCPCS: 81001; 87077; 87086; 87186; 96372; 99283; J0696; A9270-GY

== ENCOUNTER 2023-08-23 20:29 | Emergency (ER) | payer BC, MEDICAID ==
[2023-08-23 20:45] VITALS: TEMP 98
[2023-08-23 21:55] VITALS: O2SAT 99
[2023-08-23 22:24] LABS: Appearance Clear (Clear); Bacteria None Seen /HPF (None Seen); Bilirubin Negative (Negative); Blood Negative (Negative); Epithelial Cells Rare /HPF (None Seen); Glucose, Urine Negative (Negative); Hyaline Casts NONE SEEN /LPF (0-2); Ketones Negative (Negative); Leukocyte Esterase Negative (Negative); Nitrite Negative (Negative); Ph 6.5 (4.6-8.0); Protein,Urine Dip Negative (Negative); RBC 0-2 /HPF (0-5); Specific Gravity 1.015 (1.005-1.030); Urobilinogen 0.2 mg/dL (0.2); WBC 0-2 /HPF (0-5)
[2023-08-23 22:26] LABS: ADD URINE CULTURE? NO (NO)
[2023-08-23 22:52] VITALS: BP 140/97; PULSE 65; RESP 18
--- NOTE | 2023-08-23 22:54 | ERPHSYRPT ---
- History of Present Illness Time Seen by Provider: 08/23/23 21:00 Historian: patient Exam Limitations: no limitations Patient Subjective Stated Complaint: pt states for the last 2 weeks she has been experiencing burning upon urination and diffuse abd pain. Triage Nursing Assessment: pt ambulatory to bed by self, at bedside, pt alert and oriented x3, skin pwd, pt c/o burning upon urination x2 weeks along with diffuse abd pain, pt denies any constipation, last BM was 08/23/23. Last oral intake was 1630 Physician History: Patient is a 37-year-old female presents to the emergency department for evaluation of vague diffuse abdominal pain and mild dysuria that has been ongoing for approximately 2 weeks. Patient concerned for possible urinary tract infection. Patient has had urinary tract infections in the past. No active pain at this time. No associated nausea vomiting or diaphoresis. No fever no rash. Symptoms are mild in intensity. Urine flow reproduces pain in the urinary tract. Palpation reproduces mild abdominal discomfort. Patient otherwise feels well. Significant other at bedside. They voiced no other complaints or concerns at this time. Portions of this note were created with voice recognition technology. There may be grammatical, spelling, punctuation or sound alike errors Timing/Duration: week(s) (2 weeks) Activities at Onset: none Quality: aching Abdominal Pain Onset Location: generalized abdomen Pain Radiation: no radiation Severity of Pain-Max: mild Severity of Pain-Current: none Modifying Factors: Improves With: palpation Associated Symptoms: denies symptoms Previous symptoms: same symptoms as today Allergies/Adverse Reactions: shrimp Allergy (Severe, Verified 08/23/23 20:41) Difficulty Breathing venom-honey bee Allergy (Severe, Verified 08/23/23 20:41) Difficulty Breathing venom-wasp Allergy (Severe, Verified 08/23/23 20:41) Difficulty Breathing menthol [From Icy Hot] Allergy (Intermediate, Verified 08/23/23 20:41) Hives methyl salicylate [From Icy Hot] Allergy (Intermediate, Verified 08/23/23 20:41) Hives nicotine [From Nicoderm CQ] Allergy (Intermediate, Verified 08/23/23 20:41) Rash latex Allergy (Mild, Verified 08/23/23 20:41) Rash shellfish derived Allergy (Mild, Verified 08/23/23 20:41) coconut Allergy (Verified 08/23/23 20:41) Anaphylactic Reaction Home Medications: Escitalopram Oxalate [Lexapro] 20 mg PO DAILY 06/11/22 [History] PANTOPRAZOLE 40 mg Tablet [Protonix 40MG Tablet] 40 mg PO QAM 04/19/23 [History] Phentermine HCl 37.5 mg PO DAILY 04/19/23 [History] Hx Tetanus, Diphtheria Vaccination/Date Given: Yes Hx Influenza Vaccination/Date Given: No Hx Pneumococcal Vaccination/Date Given: No Immunizations Up to Date: Yes Travel Risk - International Travel Have you traveled outside of the country in past 3 weeks: No - Coronavirus Screening Are you exhibiting any of the following symptoms?: No Close contact with a COVID-19 positive Pt in past 14-21 Days: No - Vaccine Status Have you recieved a Covid-19 vaccination: Yes 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[employer] - Vaccination Dates Date of 2cond Vaccination (if applicable): 9190817 - Review of Systems Constitutional: No Symptoms, No Fever, No Chills Eyes: No Symptoms Ears, Nose, & Throat: No Symptoms Respiratory: No Symptoms, No Cough, No Dyspnea Cardiac: No Symptoms, No Chest Pain, No Edema, No Syncope Abdominal/Gastrointestinal: No Symptoms, No Abdominal Pain, No Nausea, No Vomiting, No Diarrhea Genitourinary Symptoms: No Symptoms, No Dysuria Musculoskeletal: No Symptoms, No Back Pain, No Neck Pain Skin: No Symptoms, No Rash Neurological: No Symptoms, No Dizziness, No Focal Weakness, No Sensory Changes Psychological: No Symptoms Endocrine: No Symptoms Hematologic/Lymphatic: No Symptoms Immunological/Allergic: No Symptoms All Other Systems: Reviewed and Negative - Past Medical History Pertinent Past Medical History: Yes Neurological History: Migraines, Seizures ENT History: No Pertinent History Cardiac History: No Pertinent History Respiratory History: Asthma Endocrine Medical History: No Pertinent History Musculoskeletal History: No Pertinent History GI Medical History: GERD History: No Pertinent History Psycho-Social History: Depression, Anxiety Female Reproductive Disorders: No Pertinent History Other Medical History: gestation diabetes - Past Surgical History Past Surgical History: Yes Neuro Surgical History: No Pertinent History Cardiac: No Pertinent History Respiratory: No Pertinent History Gastrointestinal: Cholecystectomy Genitourinary: No Pertinent History Musculoskeletal: No Pertinent History, Orthopedic Surgery Female Surgical History: Section, Dilation & Curettage Other Surgical History: tubal ligation, L elbow and L wrist - Social History Smoking Status: Never smoker How long have you smoked: 16yrs Exposure to second hand smoke: Yes Drug Use: none Patient Lives Alone: No Significant Family History: no pertinent family hx - Female History Hx Last Menstrual Period: 08/13/23 Hx Now: No - Nursing Vital Signs Nursing Vital Signs: Initial Vital Signs Temperature 98 F 08/23/23 20:42 Pulse Rate 70 08/23/23 20:42 Respiratory Rate 18 08/23/23 20:42 Blood Pressure 113/78 08/23/23 20:42 O2 Sat by Pulse Oximetry 100 08/23/23 20:42 Pain Scale Pain Intensity 5 - Physical Exam General Appearance: no apparent distress, alert Eye Exam: PERRL/EOMI, eyes nml inspection Neck Exam: normal inspection, non-tender, supple, full range of motion Respiratory Exam: normal breath sounds, lungs clear, airway intact, No respiratory distress Cardiovascular Exam: regular rate/rhythm, normal heart sounds, normal peripheral pulses Gastrointestinal/Abdomen Exam: soft, tenderness (Mild diffuse abdominal discomfort more so in the infra periumbilical region), No mass Back Exam: normal inspection, normal range of motion, No CVA tenderness, No vertebral tenderness Extremity Exam: normal inspection, normal range of motion, pelvis stable Neurologic Exam: alert, oriented x 3, cooperative, normal mood/affect, nml cerebellar function, sensation nml, No motor deficits Skin Exam: normal color, warm, dry Lymphatic Exam: No adenopathy SpO2 Interpretation: normal SpO2: 99 O2 Delivery: Room Air - Course Nursing assessment & vital signs reviewed: Yes - CT Exams Abdomen/Pelvis CT Interpretation: Tele-radiologist Report (Continued normal abdomen pelvis compared to 02/06/2023.) Ordered Tests: Active Orders 24 hr Category Date Time Status ABDOMEN AND PELVIS W/0 CONTRAS [CT] Stat Exams 08/23/23 20:55 Taken UA W/RFX UR CULTURE Stat Lab 08/23/23 21:00 Completed Lab/Rad Data: Laboratory Results 08/23/23 Range/Units 21:00 Urine Color Yellow (Yellow) Urine Appearance Clear (Clear) Urine pH 6.5 (4.6-8.0) Ur Specific [place] 1.015 (1.005-1.030) Urine Protein Negative (Negative) Urine Glucose (UA) Negative (Negative) mg/dL Urine Ketones Negative (Negative) Urine Blood Negative (Negative) Urine Nitrite Negative (Negative) Urine Bilirubin Negative (Negative) Urine Urobilinogen 0.2 (0.2) mg/dL Ur Leukocyte Esterase Negative (Negative) U Hyaline Cast (Auto) NONE SEEN (0-2) /LPF Urine Microscopic RBC 0-2 (0-5) /HPF Urine Microscopic WBC 0-2 (0-5) /HPF Ur Epithelial Cells Rare (None Seen) /HPF Urine Bacteria None Seen (None Seen) /HPF Urine Culture Reflexed NO (NO) - Progress Progress: improved Progress Note: 37-year-old female presents emergency department for evaluation of mild dysuria and mild lower abdominal pain x 2 weeks. Physical exam reveals mild tenderness to palpation at the lower periumbilical region. No epigastric pain. Overlying soft tissue intact. Physical exam otherwise unremarkable. Urinalysis negative for UTI. CT abdomen pelvis negative for acute intra-abdominal pathology. Patient is currently pain-free. She declined pain medication. Patient fredy ating p.o. No indication for further workup at this time. Will discharge home. Patient agrees to follow-up with her primary care doctor within 48 hours for reevaluation. Portions of this note were created with voice recognition technology. There may be grammatical, spelling, punctuation or sound alike errors Complexity problem addressed is moderate acute complicated No critical care time Complexity of data reviewed and analyzed is moderate. Test ordered test reviewed. Results analyzed and correlated clinically with history and physical examination. Risk of complication and or risk of morbidity/mortality of patient management is low Will discharge home. Vital stable. Time spent to discharge patient approximately 15 minutes. Plan of care established for shared decision making. No social determinants of health present impede follow-up. Patient agrees to follow-up with her primary care doctor within 48 hours. Significant other at bedside. They voiced no other complaints or concerns at this time. Portions of this note were created with voice recognition technology. There may be grammatical, spelling, punctuation or sound alike errors 08/23/23 23:07 Counseled pt/family regarding: lab results, diagnosis, rad results - Departure Departure Disposition: Home Clinical Impression: Abdominal pain, Dysuria Condition: Stable Critical Care Time: No Referrals: SOPHIA LOYOLA MD [Primary Care Provider] - Follow up/PCP as directed Additional Instructions: Discharge/Care Plan TOLU ROSA was seen on 08/23/23 in the Emergency Room. The patient was counseled regarding Diagnosis,Lab results, Imaging studies, need for follow up and when to return to the Emergency Room. Prescriptions given: Discharge Note I have spoken with the patient and/or caregivers. I have explained the patient's condition, diagnosis and treatment plan based on the information available to me at this time. I have answered the patient's and/or caregiver's questions and addressed any concerns. The patient and/or caregivers have as good understanding of the patient's diagnosis, condition and treatment plan as can be expected at this point. The vital signs have been stable. The patient's condition is stable and appropriate for discharge from the emergency department. The patient will pursue further outpatient evaluation with the primary care physician or other designated or consulting physician as outlined in the discharge instructions. The patient and/or caregivers are agreeable to this plan of care and follow-up instructions have been explained in detail. The patient and/or caregivers have received these instruction. The patient/and or caregivers are aware that any significant change in condition or worsening of symptoms should prompt an immediate return to this or the closest emergency department or call 911.
--- NOTE | 2023-08-24 08:42 | XRAY ---
Indication: Abdominal pain. Burning with urination. History UTI. Multiple contiguous axial images obtained through the abdomen and pelvis without contrast. Comparison: February 06, 2023 Lung bases remain clear. Heart not enlarged. Stomach is distended with food. Noncontrasted stomach and bowel loops appear nonobstructed. Appendix not clearly visualized. Again cholecystectomy. No free fluid/air. Remaining liver, pancreas, spleen, adrenal glands, kidneys, ureters, bladder, uterus, and aorta are unremarkable for noncontrast exam. Osseous structures intact. Impression: Continued negative CT abdomen/pelvis without contrast exam.
== END 2023-08-23 23:10 | disposition home or self-care (01) ==
LOC: ED 20:29
DX: R30.0 Dysuria (principal); R10.84 Generalized abdominal pain; Z79.899 Other long term (current) drug therapy
CPT/HCPCS: 74176; 81001; 99283

== ENCOUNTER 2024-05-01 16:25 | Emergency (ER) | payer MEDICAID, OTHER ==
[2024-05-01 17:12] VITALS: BP 122/72; PULSE 68; RESP 16; TEMP 98.4; O2SAT 94
[2024-05-01 17:46] LABS: Group A Strep NOT DETECTED (NEGATIVE)
[2024-05-01 17:58] LABS: INFLUENZA A NEGATIVE (NEGATIVE); INFLUENZA B NEGATIVE (NEGATIVE); RESPIRATORY SYNCTIAL VIRUS NEGATIVE (NEGATIVE); SARS-CoV-2 Xpert Express NEGATIVE (NEGATIVE)
--- NOTE | 2024-05-01 18:23 | ERPHSYRPT ---
- History of Present Illness Time Seen by Provider: 05/01/24 17:25 Source: patient Exam Limitations: no limitations Patient Subjective Stated Complaint: C/O cough for about a week with a fever and sorethroat today. Patient has not taken her temperature at home. Indicates her felt her head with his hand and she is hotter than usual. Triage Nursing Assessment: Patient ambulated back to ER without difficulties. SHe is alert and oriented. No SOB. Occassional, dry, weak cough present. Non- productive during assessment. Skin tone normal. Physician History: 38-year-old female presented to the ER with cough congestion symptoms for 1 week with progressive worsening since last night. Also reports subjective feeling of fever and chills. Patient reports coughing up yellow-green sputum moderate in amount. She has been using Flonase for symptomatic relief of congestion but still feels heaviness in the ears. No known sick contact. Allergies/Adverse Reactions: shrimp Allergy (Severe, Verified 05/01/24 16:56) Difficulty Breathing venom-honey bee Allergy (Severe, Verified 05/01/24 16:56) Difficulty Breathing venom-wasp Allergy (Severe, Verified 05/01/24 16:56) Difficulty Breathing menthol [From Icy Hot] Allergy (Intermediate, Verified 05/01/24 16:56) Hives methyl salicylate [From Icy Hot] Allergy (Intermediate, Verified 05/01/24 16:56) Hives nicotine [From Nicoderm CQ] Allergy (Intermediate, Verified 05/01/24 16:56) Rash latex Allergy (Mild, Verified 05/01/24 16:56) Rash shellfish derived Allergy (Mild, Verified 05/01/24 16:56) coconut Allergy (Verified 05/01/24 16:56) Anaphylactic Reaction Home Medications: Escitalopram Oxalate [Lexapro] 20 mg PO DAILY 06/11/22 [History] PANTOPRAZOLE 40 mg Tablet [Protonix 40MG Tablet] 40 mg PO QAM 04/19/23 [History] Albuterol Sulfate [Albuterol Sulfate Hfa] 2 puff PO Q4-6HPRN PRN 05/01/24 [History] Cholecalciferol (Vitamin D3) [Vitamin D3] 60 mcg PO DAILY 05/01/24 [History] Fluticasone Propionate 1 spray INTRANASAL DAILY 05/01/24 [History] Hx Tetanus, Diphtheria Vaccination/Date Given: Yes Hx Influenza Vaccination/Date Given: No Hx Pneumococcal Vaccination/Date Given: No Immunizations Up to Date: Yes Travel Risk - International Travel Have you traveled outside of the country in past 3 weeks: No - Emerging Infectious Disease Are you exhibiting symptoms associated with any current EIDs: Yes Symptoms: Cough: New Onset, Fever, Other (Please Comment) Comment: Sorethroat - Review of Systems Constitutional: Fever Eyes: No Symptoms Ears, Nose, & Throat: Ear Pain, Nose Congestion, Throat Pain Respiratory: Cough, Dyspnea Cardiac: No Symptoms Abdominal/Gastrointestinal: No Symptoms Genitourinary Symptoms: No Symptoms Musculoskeletal: Myalgias Skin: No Symptoms Endocrine: No Symptoms - Past Medical History Pertinent Past Medical History: Yes Neurological History: Migraines, Seizures ENT History: No Pertinent History Cardiac History: No Pertinent History Respiratory History: Asthma Endocrine Medical History: No Pertinent History Musculoskeletal History: No Pertinent History GI Medical History: GERD, Gallbladder Disease History: No Pertinent History Psycho-Social History: Depression, Anxiety Female Reproductive Disorders: No Pertinent History Other Medical History: gestational diabetes, seasonal allergies - Past Surgical History Past Surgical History: Yes Neuro Surgical History: No Pertinent History Cardiac: No Pertinent History Respiratory: No Pertinent History Gastrointestinal: Cholecystectomy Genitourinary: No Pertinent History Musculoskeletal: No Pertinent History, Orthopedic Surgery Female Surgical History: Dilation & Curettage, Section, Tubal Ligation Other Surgical History: L elbow and L wrist, gang cyst removal Significant Family History: no pertinent family hx - Female History Hx Last Menstrual Period: Beginning of April 2024 Hx Now: No (tubal) - Social History Smoking Status: Never smoker How long have you smoked: 16yrs Exposure to second hand smoke: Yes Drug Use: none Patient Lives Alone: No - Social Determinants of Health Will the patient participate in the screening: Declined to provide - Nursing Vital Signs Nursing Vital Signs: Initial Vital Signs Temperature 98.4 F 05/01/24 16:55 Pulse Rate 68 05/01/24 16:55 Respiratory Rate 16 05/01/24 16:55 Blood Pressure 122/72 05/01/24 16:55 O2 Sat by Pulse Oximetry 94 L 05/01/24 16:55 Pain Scale Pain Intensity 5 - Physical Exam General Appearance: no apparent distress Eye Exam: PERRL/EOMI Ears, Nose, Throat Exam: moist mucous membranes, pharyngeal erythema Neck Exam: normal inspection, non-tender, supple, full range of motion Respiratory Exam: normal breath sounds, lungs clear Cardiovascular Exam: regular rate/rhythm, normal heart sounds Gastrointestinal/Abdomen Exam: soft, normal bowel sounds, No tenderness Extremity Exam: normal inspection, normal range of motion Neurologic Exam: alert, oriented x 3, cooperative Skin Exam: normal color SpO2 Interpretation: normal SpO2: 94 O2 Delivery: Room Air Ordered Tests: Active Orders 24 hr Category Date Time Status CHEST 1 VIEW (PORTABLE) Stat Exams 05/01/24 17:15 Taken Lab/Rad Data: Laboratory Results 05/01/24 Range/Units 17:15 Influenza Type A Ag NEGATIVE (NEGATIVE) Influenza Type B Ag NEGATIVE (NEGATIVE) RSV (PCR) NEGATIVE (NEGATIVE) SARS-CoV-2 (PCR) NEGATIVE (NEGATIVE) Group A Strep Antibody NOT DETECTED (NEGATIVE) - Progress Progress: unchanged Air Movement: good Progress Note: 05/01/24 18:23 38-year-old is evaluated in the ER for cough congestion symptoms for almost 1 week and now worsening cough productive of yellow-green sputum. She is not in any distress. Negative COVID flu RSV and strep. Chest x-ray negative for any acute cardiopulmonary findings reviewed by me, official report is pending. I believe patient has viral bronchitis, given a dose of steroid here and will continue to go home. She has albuterol inhaler which she is advised to contin ue. Discussed signs symptoms of worsening needing return to ER which she seems understanding. Blood Culture(s) Obtained: No Antibiotics given: No Counseled pt/family regarding: lab results, diagnosis, rad results Medical Desision Making - Diagnostic Testing Diagnostic test were ordered, analyzed, and reviewed by me: Yes Radiological Interpretation: Interpreted by me, Reviewed by me - Risk of complications The pt has a mod risk of morbidity or mortality based on: Need for prescription drug management - Departure Departure Disposition: Home Clinical Impression: Acute bronchitis Condition: Stable Critical Care Time: No Referrals: SOPHIA LOYOLA MD [Primary Care Provider] - Follow up with PCP 1 day Instructions: Cough, Adult (DC) Additional Instructions: Continue with inhaler. Follow-up with primary care for reevaluation. Take Tylenol/ibuprofen as needed. Return to ER for difficulty breathing, worsening cough or persistent high-grade fever chills etc. Prescriptions: Prednisone 20 mg [Deltasone 20 mg] 60 mg PO DAILY 5 Days #15 tablet
[2024-05-01] MEDS ORDERED: DELTASONE 20 MG ONE (18:33)
[2024-05-01] MEDS: DELTASONE 20 MG PO ONE (18:35)
--- NOTE | 2024-05-02 08:51 | XRAY ---
Indication: Cough. Comparison: June 11, 2022 Portable chest again demonstrates normal heart, lungs, and bony thorax.
== END 2024-05-01 19:04 | disposition home or self-care (01) ==
LOC: ED 16:25
DX: J20.9 Acute bronchitis, unspecified (principal); R05.1 Acute cough; Z79.52 Long term (current) use of systemic steroids; Z79.899 Other long term (current) drug therapy
CPT/HCPCS: 0241U; 71045; 87651; 99283; A9270-GY